=== PATIENT | male | born 1950 | race Caucasian/White ===

== ENCOUNTER 2024-06-21 17:23 | Inpatient (IN) ==
[2024-06-21 17:52] LABS: iSTAT Creatinine 1.1 mg/dl (0.6-1.3); iSTAT Ionized Calcium 1.1 mmol/l (1.12-1.32); iSTAT Potassium 3.8 mmol/L (3.3-5.0)
[2024-06-21] MEDS: OPTIRAY 320 125ml IV ONE (18:04)
[2024-06-21 18:07] LABS: Basophils # (auto) 0.02 K/uL (0.00-0.20); Basophils % (auto) 0.3 %; Eosinophils # (auto) 0.16 K/uL (0.00-0.50); Eosinophils % (auto) 2.2 %; Hematocrit (blood only) 47.2 % (42.0-52.0); Hemoglobin 15.9 g/dl (14.0-18.0); Immature Granulocytes # (auto) 0.02 K/uL (0.01-0.20); Immature Granulocytes % (auto) 0.3 %; Lymphocytes # (auto) 1.46 K/uL (1.20-3.40); Mean Corpuscular Hemoglobin 30.3 pg (25.0-34.0); Mean Corpuscular Hgb Conc 33.7 g/dL (32.0-36.0); Mean Corpuscular Volume 90.1 fL (80.0-100.0); Mean Platelet Volume 9.3 fL (9.4-12.4); Monocytes # (auto) 0.62 K/uL (0.11-0.59); Monocytes % (auto) 8.5 %; Neutrophils # (auto) 5.02 K/uL (1.40-6.50); Neutrophils % (auto) 68.7 %; Platelet Count 226 K/uL (130-400); RDW Coefficient of Variation 13.3 % (11.5-14.5); RDW Standard Deviation 43.8 fL (36.4-46.3); Red Blood Count 5.24 M/uL (4.70-6.10)
[2024-06-21 18:11] LABS: Albumin Globulin Ratio 2.1 (0.9-2); Albumin Level 4.6 gm/dl (3.4-5.0); BUN Creatinine Ratio 18.6 (10-20); Bilirubin,Total 0.5 mg/dl (0.2-1.0); Creatinine Clr Calc Pharmacy 73.2 ml/min; Globulin 2.2 gm/dl (2.5-4.0); Magnesium 2.3 mg/dl (1.7-2.4); Potassium 3.9 mmol/L (3.5-5.1); Total Protein 6.8 gm/dl (6.0-8.3)
[2024-06-21 18:18] LABS: Troponin I High Sensitivity 3.7 pg/ml (0-20)
[2024-06-21 18:23] LABS: Partial Thromboplastin Time 27 Seconds (21-31); Prothrombin Time 10.6 Seconds (9.0-12.0)
--- NOTE | 2024-06-21 18:29 | CT Scan Report ---
EXAMINATION: Head CT without CLINICAL HISTORY: Neurodeficit, acute stroke suspected PRIORS: None TECHNIQUE: Contiguous axial images were obtained through the head without the use of intravenous contrast. Sagittal and coronal reformations are supplied. FINDINGS: Age appropriate parenchymal volume is noted. Santamaria-white differentiation is preserved. No edema or midline shift. Moderate periventricular lucency noted suggesting small vessel occlusive disease. No intra-axial or extra-axial hemorrhage. Ventricles are normal in size and configuration. Brainstem and cerebellum have a normal appearance. Calvarium unremarkable. Paranasal sinuses and mastoid air cells are well-pneumatized. Globes are intact. No retrobulbar abnormality. IMPRESSION: No CT evidence of an acute intracranial abnormality. Electronically signed by Abbey Moss 06-21-2024 6:28 PM
--- NOTE | 2024-06-21 18:29 | CT Scan Report ---
EXAM: CT angio neck with con CLINICAL HISTORY: Neurodeficit, acute stroke suspected TECHNIQUE: Contiguous CTA axial images were obtained through the neck with the administration of intravenous contrast. Sagittal and coronal reformations are supplied. MIPS are supplied. COMPARISON: None FINDINGS: Dental amalgam creates beam hardening artifact which diminishes image quality. A left-sided aortic arch is present. Moderate atherosclerotic disease is noted with appropriate takeoff of the 3 great vessels and no high-grade stenosis. The common, internal and external carotid arteries are patent with mild atherosclerotic disease of the right carotid bulb. No hemodynamically significant stenosis, thrombus or intimal flap to suggest dissection. The internal carotid arteries entered the petrous portion of the skull base normally. The vertebral arteries opacify normallywith the left vertebral artery being dominant. No significant atherosclerotic plaque, hemodynamically significant stenosis or dissection. Both vertebral arteries contribute to the basilar artery at the level of the brainstem. No aneurysm at the basilar tip. IMPRESSION: No CTA evidence of an acutevascular abnormality in the neck. Electronically signed by Abbey Moss 06-21-2024 6:28 PM
--- NOTE | 2024-06-21 18:29 | CT Scan Report ---
EXAM: CTA head with CLINICAL HISTORY: Stroke suspected neurodeficit TECHNIQUE: Contiguous CTA axial images were obtained through the head after the administration of intravenous contrast. Sagittal and coronal reformations are supplied. PRIORS: None FINDINGS: The vertebral arteries form the basilar artery at the skull base. [place] is patent. No thrombus or hemodynamically significant stenosis. No aneurysmal dilatation or miranda aneurysm. Mild to moderate atherosclerotic disease of the left internal carotid artery cavernous portion with no hemodynamically significant stenosis. No enhancing mass in the brain. Mild to moderate osseous demineralization noted. IMPRESSION: No CTA evidence of an acute vascular abnormality. Electronically signed by Abbey Moss 06-21-2024 6:28 PM
[2024-06-21] MEDS: ASPIRIN 81 MG CHEW PO STA (19:29)
--- NOTE | 2024-06-21 19:46 | Emergency Department Note ---
History of Present Illness General Chief complaint: TIA Symptoms Time Seen by Provider: 06/21/24 17:25 History of Present Illness Provider complaint: Strokelike symptoms 74-year-old male presents emergency department for strokelike symptoms. EMS reports that the patient reported that he was having difficulty ambulating speaking and having facial droop started at 1430. EMS reports that by the time they got there his symptoms had resolved. Patient reports no headache. No fevers. He reports no numbness tingling difficulty speaking or walking. Home Medications Medication Instructions Recorded Confirmed Type ascorbic acid (vitamin C) 1,000 mg 1 g PO DAILY 06/21/24 06/21/24 History tablet (Vitamin C) cholecalciferol (vitamin D3) 25 25 mcg PO DAILY 06/21/24 06/21/24 History mcg (1,000 unit) tablet (Vitamin D3) cyanocobalamin (vitamin B-12) 1,000 mcg PO DAILY 06/21/24 06/21/24 History 1,000 mcg tablet (Vitamin B-12) potassium gluconate 595 mg (99 mg) 595 mg PO DAILY 06/21/24 06/21/24 History tablet Allergies Allergy/AdvReac Type Severity Reaction Status Date / Time No Known Allergies Allergy Unverified 06/21/24 19:18 Past Med/Surg History Problem List (Updated 06/21/24 @ 20:00 by Urbano Ramos MD) TIA (transient ischemic attack) (Acute) Social History Smoking Status: Former smoker Feels Safe at Home: Yes Physical Exam Vital Signs Vital Signs - 24 hr 06/21/24 17:31 06/21/24 17:31 06/21/24 17:36 Temperature 37 C Temperature Source Oral Oral Pulse Rate 93 H 88 Pulse Rate [Apical] Pulse Rate from SpO2 Sensor 87 Pulse Rhythm [Apical] Pulse Strength [Apical] Respiratory Rate 15 20 Respiratory Effort / Characteristics Non-Labored Spontaneous Respiratory Depth Normal Respiratory Pattern Blood Pressure 196/87 H Blood Pressure [Right Arm] Blood Pressure Mean 123 Blood Pressure Mean [Right Arm] Pulse Oximetry 99 99 Oxygen Delivery Method Room Air Room Air Sepsis Recent Fever Within 48 Hours No Sepsis New/Unexplained Change in Mental Status N/A Sepsis Action Taken by Nursing No Action Required 06/21/24 17:39 06/21/24 18:18 06/21/24 18:24 Temperature Temperature Source Pulse Rate 91 H 85 88 Pulse Rate [Apical] Pulse Rate from SpO2 Sensor 86 86 Pulse Rhythm [Apical] Pulse Strength [Apical] Respiratory Rate 20 16 Respiratory Effort / Characteristics Respiratory Depth Respiratory Pattern Blood Pressure Blood Pressure [Right Arm] Blood Pressure Mean Blood Pressure Mean [Right Arm] Pulse Oximetry 96 96 Oxygen Delivery Method Sepsis Recent Fever Within 48 Hours Sepsis New/Unexplained Change in Mental Status Sepsis Action Taken by Nursing 06/21/24 18:30 06/21/24 18:31 06/21/24 19:30 Temperature Temperature Source Pulse Rate 97 H Pulse Rate [Apical] 99 H Pulse Rate from SpO2 Sensor 95 H Pulse Rhythm [Apical] Regular Pulse Strength [Apical] Normal Respiratory Rate 18 19 Respiratory Effort / Characteristics Non-Labored Spontaneous Respiratory Depth Normal Respiratory Pattern Regular Blood Pressure 183/86 H Blood Pressure [Right Arm] 189/100 H Blood Pressure Mean 130 Blood Pressure Mean [Right Arm] 129 Pulse Oximetry 97 96 Oxygen Delivery Method Room Air Sepsis Recent Fever Within 48 Hours Sepsis New/Unexplained Change in Mental Status Sepsis Action Taken by Nursing Physical Exam HENT: Exam performed. - Head: Normocephalic and atraumatic. EYES: Conjunctivae and EOM are normal. Right eye exhibits no discharge. Left eye exhibits no discharge. No scleral icterus. NECK: Normal range of motion. Neck supple. No JVD present. CV: Normal rate, regular rhythm, normal heart sounds and intact distal pulses. There is no peripheral edema. Palpable radial pulses bue. PULM/CHEST: Effort normal and breath sounds normal. No respiratory distress. No stridor. no wheezes. no rales. ABD: The abdomen is soft. There is no tenderness. NEURO: Motor and sensation grossly intact. NIHSS: 0 SKIN: Skin is warm and dry. He is not diaphoretic. PSYCH: normal mood and affect. Behavior is normal. Judgment and thought content normal. Course Course 1725: The patient was evaluated in room C3. A complete history and physical exam was performed Cardiac monitoring: An order was placed for continuous cardiac monitoring. The monitor shows a rate of 90 with sinus rhythm interpreted by me No code stroke called as the patient's NIHSS is 0. 1900: Vital signs stable. Labs and imaging are unremarkable. Patient will be admitted to the [facility] team for TIA. 1957: Case management states that the patient be admitted to the [facility] hospitalist team. Patient will be admitted to the [facility] hospitalist team. Administered Medications Discontinued Medications Aspirin (Aspirin 81 Mg Chew) 324 mg PO NOW STA Stop: 06/21/24 19:05 Last Admin: 06/21/24 19:29 Dose: 324 mg Documented By: REG Ioversol (Optiray 320 125ml) 118 ml IV ONCE ONE Stop: 06/21/24 18:05 Last Admin: 06/21/24 18:04 Dose: 118 ml Documented By: SIOBHAN Medical Decision Making Laboratory Data Attestation: I reviewed the patient's lab results. 06/21/24 17:34 06/21/24 17:34 Lab Results 06/21/24 06/21/24 06/21/24 Range/Units 17:32 17:34 17:39 WBC 7.30 (4.8-10.8) K/ul RBC 5.24 (4.70-6.10) M/uL Hgb 15.9 (14.0-18.0) g/dl POC Hgb 16.0 (14.0-18.0) g/dl Hct 47.2 (42.0-52.0) % POC Hct 47 (42-52) % MCV 90.1 (80.0-100.0) fL MCH 30.3 (25.0-34.0) pg MCHC 33.7 (32.0-36.0) g/dL RDW Std Deviation 43.8 (36.4-46.3) fL RDW Coeff of Filippo 13.3 (11.5-14.5) % Plt Count 226 (130-400) K/uL MPV 9.3 L (9.4-12.4) fL Immature Gran % (Auto) 0.3 % Neut % (Auto) 68.7 % Lymph % (Auto) 20.0 % [place] % (Auto) 8.5 % Eos % (Auto) 2.2 % Baso % (Auto) 0.3 % Neut # (Auto) 5.02 (1.40-6.50) K/uL Lymph # (Auto) 1.46 (1.20-3.40) K/uL [place] # (Auto) 0.62 H (0.11-0.59) K/uL Eos # (Auto) 0.16 (0.00-0.50) K/uL Baso # (Auto) 0.02 (0.00-0.20) K/uL Immature Gran # (Auto) 0.02 (0.01-0.20) K/uL PT 10.6 (9.0-12.0) Seconds INR 1.0 (0.9-1.1) APTT 27 (21-31) Seconds PTT Ratio 1.0 POC Sodium 141 (135-144) mmol/L Sodium 141 (136-145) mmol/L POC Potassium 3.8 (3.3-5.0) mmol/L Potassium 3.9 (3.5-5.1) mmol/L POC Chloride 104 (101-112) mmol/L Chloride 105 (98-107) mmol/L Carbon Dioxide 30 (21-32) mmol/L POC Total CO2 27 (24-31) mmol/L Anion Gap 6 (3-11) POC Anion Gap 16.0 (16-25) mmol/L POC BUN 18 (7-18) mg/dl BUN 18 (6-23) mg/dl Creatinine 0.97 (0.6-1.4) mg/dl POC Creatinine 1.1 (0.6-1.3) mg/dl Est Cr Clr Drug Dosing 73.2 ml/min eGFR 80.91 BUN/Creatinine Ratio 18.6 (10-20) Glucose 108 H (70-99(Fasting)) mg/dl POC Glucose 104 H (70-99) mg/dl POC Glucose (other) 103 H (70-99) mg/dl Calcium 9.0 (8.6-10.3) mg/dl POC Ioniz Calcium [place] 1.10 L (1.12-1.32) mmol/l Magnesium 2.3 (1.7-2.4) mg/dl Total Bilirubin 0.5 (0.2-1.0) mg/dl AST 19 (13-39) U/L ALT 16 (7-52) U/L Alkaline Phosphatase 56 (34-104) U/L Troponin I High Sens 3.7 (0-20) pg/ml Total Protein 6.8 (6.0-8.3) gm/dl Albumin 4.6 (3.4-5.0) gm/dl Globulin 2.2 L (2.5-4.0) gm/dl Albumin/Globulin Ratio 2.1 H (0.9-2) Blood Type Antibody Screen 06/21/24 Range/Units 17:43 WBC (4.8-10.8) K/ul RBC (4.70-6.10) M/uL Hgb (14.0-18.0) g/dl POC Hgb (14.0-18.0) g/dl Hct (42.0-52.0) % POC Hct (42-52) % MCV (80.0-100.0) fL MCH (25.0-34.0) pg MCHC (32.0-36.0) g/dL RDW Std Deviation (36.4-46.3) fL RDW Coeff of Filippo (11.5-14.5) % Plt Count (130-400) K/uL MPV (9.4-12.4) fL Immature Gran % (Auto) % Neut % (Auto) % Lymph % (Auto) % [place] % (Auto) % Eos % (Auto) % Baso % (Auto) % Neut # (Auto) (1.40-6.50) K/uL Lymph # (Auto) (1.20-3.40) K/uL [place] # (Auto) (0.11-0.59) K/uL Eos # (Auto) (0.00-0.50) K/uL Baso # (Auto) (0.00-0.20) K/uL Immature Gran # (Auto) (0.01-0.20) K/uL PT (9.0-12.0) Seconds INR (0.9-1.1) APTT (21-31) Seconds PTT Ratio POC Sodium (135-144) mmol/L Sodium (136-145) mmol/L POC Potassium (3.3-5.0) mmol/L Potassium (3.5-5.1) mmol/L POC Chloride (101-112) mmol/L Chloride (98-107) mmol/L Carbon Dioxide (21-32) mmol/L POC Total CO2 (24-31) mmol/L Anion Gap (3-11) POC Anion Gap (16-25) mmol/L POC BUN (7-18) mg/dl BUN (6-23) mg/dl Creatinine (0.6-1.4) mg/dl POC Creatinine (0.6-1.3) mg/dl Est Cr Clr Drug Dosing ml/min eGFR BUN/Creatinine Ratio (10-20) Glucose (70-99(Fasting)) mg/dl POC Glucose (70-99) mg/dl POC Glucose (other) (70-99) mg/dl Calcium (8.6-10.3) mg/dl POC Ioniz Calcium [place] (1.12-1.32) mmol/l Magnesium (1.7-2.4) mg/dl Total Bilirubin (0.2-1.0) mg/dl AST (13-39) U/L ALT (7-52) U/L Alkaline Phosphatase (34-104) U/L Troponin I High Sens (0-20) pg/ml Total Protein (6.0-8.3) gm/dl Albumin (3.4-5.0) gm/dl Globulin (2.5-4.0) gm/dl Albumin/Globulin Ratio (0.9-2) Blood Type B Positive Antibody Screen NEGATIVE Imaging Data Radiologist's Impression: Head CT 06/21/24 17:29 EXAMINATION: Head CT without CLINICAL HISTORY: Neurodeficit, acute stroke suspected PRIORS: None TECHNIQUE: Contiguous axial images were obtained through the head without the use of intravenous contrast. Sagittal and coronal reformations are supplied. FINDINGS: Age appropriate parenchymal volume is noted. Santamaria-white differentiation is preserved. No edema or midline shift. Moderate periventricular lucency noted suggesting small vessel occlusive disease. No intra-axial or extra-axial hemorrhage. Ventricles are normal in size and configuration. Brainstem and cerebellum have a normal appearance. Calvarium unremarkable. Paranasal sinuses and mastoid air cells are well-pneumatized. Globes are intact. No retrobulbar abnormality. IMPRESSION: No CT evidence of an acute intracranial abnormality. Electronically signed by Abbey Moss 06-21-2024 6:28 PM Head CTA 06/21/24 17:29 EXAM: CTA head with CLINICAL HISTORY: Stroke suspected neurodeficit TECHNIQUE: Contiguous CTA axial images were obtained through the head after the administration of intravenous contrast. Sagittal and coronal reformations are supplied. PRIORS: None FINDINGS: The vertebral arteries form the basilar artery at the skull base. [place] is patent. No thrombus or hemodynamically significant stenosis. No aneurysmal dilatation or miranda aneurysm. Mild to moderate atherosclerotic disease of the left internal carotid artery cavernous portion with no hemodynamically significant stenosis. No enhancing mass in the brain. Mild to moderate osseous demineralization noted. IMPRESSION: No CTA evidence of an acute vascular abnormality. Electronically signed by Abbey Moss 06-21-2024 6:28 PM Neck CTA 06/21/24 17:29 EXAM: CT angio neck with con CLINICAL HISTORY: Neurodeficit, acute stroke suspected TECHNIQUE: Contiguous CTA axial images were obtained through the neck with the administration of intravenous contrast. Sagittal and coronal reformations are supplied. MIPS are supplied. COMPARISON: None FINDINGS: Dental amalgam creates beam hardening artifact which diminishes image quality. A left-sided aortic arch is present. Moderate atherosclerotic disease is noted with appropriate takeoff of the 3 great vessels and no high-grade stenosis. The common, internal and external carotid arteries are patent with mild atherosclerotic disease of the right carotid bulb. No hemodynamically significant stenosis, thrombus or intimal flap to suggest dissection. The internal carotid arteries entered the petrous portion of the skull base normally. The vertebral arteries opacify normallywith the left vertebral artery being dominant. No significant atherosclerotic plaque, hemodynamically significant stenosis or dissection. Both vertebral arteries contribute to the basilar artery at the level of the brainstem. No aneurysm at the basilar tip. IMPRESSION: No CTA evidence of an acutevascular abnormality in the neck. Electronically signed by Abbey Moss 06-21-2024 6:28 PM ECG Data Attestation: I personally reviewed and interpreted this ECG as follows: Rate (beats per minute): 87 Rhythm: + normal sinus ECG Intervals/blocks: + Normal [place] and + Normal QT-c ECG ST segments: + Normal ST segments Additional Comments: QRS 74 MDM Narrative 1725: The patient was evaluated in room C3. A complete history and physical exam was performed Cardiac monitoring: An order was placed for continuous cardiac monitoring. The monitor shows a rate of 90 with sinus rhythm interpreted by me No code stroke called as the patient's NIHSS is 0. 1900: Vital signs stable. Labs and imaging are unremarkable. Patient will be admitted to the [facility] team for TIA. 1957: Case management states that the patient be admitted to the [facility] hospitalist team. Patient will be admitted to the [facility] hospitalist team. Impression & Plan TIA (transient ischemic attack) Discharge Plan Visit Data Chief Complaint: TIA Symptoms ED Provider: Urbano Ramos Discharge Problem: TIA (transient ischemic attack) Patient Disposition: Being Evaluated by Hospitalist Forms Stand Alone Forms: My [facility] Prescriptions Prescriptions: No Action ascorbic acid (vitamin C) [Vitamin C] 1,000 mg Tablet 1 g PO DAILY cyanocobalamin (vitamin B-12) [Vitamin B-12] 1,000 mcg Tablet 1,000 mcg PO DAILY cholecalciferol (vitamin D3) [Vitamin D3] 25 mcg (1,000 unit) Tablet 25 mcg PO DAILY potassium gluconate 595 mg (99 mg) Tablet 595 mg PO DAILY Referrals Referrals: Jarret Beaulieu MD [Primary Care Provider] -
--- NOTE | 2024-06-21 20:29 | History & Physical Report ---
Date of Service June 21, 2024 Assessment & Plan (1) Stroke-like symptoms: Plan Strokelike symptoms- The patient will be admitted to telemetry for serial cardiac enzymes, serial EKG's, cardiac rhythm monitoring and a 2-D echocardiogram with Dopplers. Patient reported by his to have noted a slight facial droop, which at this point has completely resolved CT scan of head without contrast, CTA head and neck are all negative Order MRI of brain without contrast Stroke without thrombolytic order set Consult speech/PT/OT/neurology Check a fasting lipid panel and hemoglobin A1c Start aspirin 81 mg daily Start atorvastatin 20 mg daily History of Present Illness Chief Complaint: The patient presented to the emergency department via EMS, after his noted that he had a facial droop that started about 230 this afternoon. This was not accompanied by any symptoms that he was aware of, including no difficulty with speech, swallowing, weakness in arms or legs, lightheadedness, dizziness or headache. The patient continues to have no symptoms while in the emergency department Primary Care Provider: Jarret Beaulieu MD The patient is a 74-year-old male with a past medical history including vitamin D deficiency, vitamin B12 deficiency who presents to the emergency department as noted above. The patient himself, has had no overt symptoms, and has no symptoms at this time. Allergies Allergy/AdvReac Type Severity Reaction Status Date / Time No Known Allergies Allergy Unverified 06/21/24 19:18 Home Medications Medication Instructions Recorded Confirmed Type ascorbic acid (vitamin C) 1,000 mg 1 g PO DAILY 06/21/24 06/21/24 History tablet (Vitamin C) cholecalciferol (vitamin D3) 25 25 mcg PO DAILY 06/21/24 06/21/24 History mcg (1,000 unit) tablet (Vitamin D3) cyanocobalamin (vitamin B-12) 1,000 mcg PO DAILY 06/21/24 06/21/24 History 1,000 mcg tablet (Vitamin B-12) potassium gluconate 595 mg (99 mg) 595 mg PO DAILY 06/21/24 06/21/24 History tablet Past Med/Surg History Problem List (Updated 06/21/24 @ 21:52 by Harinder Oliveros MD) Stroke-like symptoms TIA (transient ischemic attack) (Acute) Medical History (Updated 06/21/24 @ 21:52 by Harinder Oliveros MD) Vitamin D deficiency B12 deficiency Social History Smoking Status: Former smoker Tobacco Type: Cigarettes Do You Dip or Chew Tobacco: No; Hx Alcohol Use: No Hx Substance Use: No Preferred Language: Israeli Communication Ability: Effective Delivery Room Clerk Required: No Beliefs That Will Affect Care: None Current Living Situation: Spouse Feels Safe at Home: Yes Assistive Devices: Glasses Review of Systems Review of Systems: The patient denies chest pain, palpitations, shortness of breath, dyspnea on exertion, cough, lower extremity swelling, sore throat, fevers, chills, sweats, weight change, fatigue, nausea, vomiting, diarrhea , constipation, abdominal pain, pelvic pain, blood in urine or stool, dysuria, urinary frequency or urgency, lightheadedness, dizziness, headache, memory loss, loss of consciousness, rash, abnormal bruising or bleeding, imbalance, focal or generalized weakness, numbness or tingling in arms or legs, generalized arthralgias or myalgias, back or neck pain, or night sweats. The review of systems is otherwise negative other than for that already noted above, and at least 10 systems have been reviewed. Physical Exam Physical Exam: The patient is awake, alert and oriented 3, well developed and well nourished, normocephalic and atraumatic, lying in bed and in no acute distress. HEENT--PERRL, EOMI, mucous membranes and oropharynx dry. Neck--supple. No JVD. No bruits. Thyroid normal, trachea midline, no adenopathy. Heart--normal S1 and S2. No murmurs, rubs or gallops. Lungs--clear bilaterally, no respiratory distress, no accessory muscle use. Abdomen--normal bowel sounds and soft. Nontender. Nondistended, no hernias or masses, no organomegaly. Extremities--no cyanosis or clubbing. No edema. There are good distal pulses b/l. Dermatologic--normal skin turgor, normal color, no abnormal lymph nodes, no rash. Neurologic--cranial nerves II through XII grossly intact. Trace facial droop on the right Rheumatologic--normal range of motion. Psychiatric--normal affect. Results & Data Results & Data Vital Signs (Past 12 Hours) Vital Signs Temp Pulse Pulse Resp BP BP Pulse Ox 06/21/24 20:05 105 H 14 184/100 H 97 12/15/24 19:30 99 H 19 189/100 H 96 06/21/24 18:31 183/86 H 06/21/24 18:30 97 H 18 97 06/21/24 18:24 88 16 96 06/21/24 18:18 85 20 96 06/21/24 17:39 91 H 06/21/24 17:36 88 20 99 06/21/24 17:31 06/21/24 17:31 37 C 93 H 15 196/87 H 99 O2 Del Method 06/21/24 20:05 Room Air 06/21/24 19:30 Room Air 06/21/24 18:31 06/21/24 18:30 06/21/24 18:24 06/21/24 18:18 06/21/24 17:39 06/21/24 17:36 06/21/24 17:31 Room Air 06/21/24 17:31 Room Air Laboratory Results Laboratory Results WBC 7.30 K/ul (4.8-10.8) 06/21/24 17:34 RBC 5.24 M/uL (4.70-6.10) 06/21/24 17:34 Hgb 15.9 g/dl (14.0-18.0) 06/21/24 17:34 POC Hgb 16.0 g/dl (14.0-18.0) 06/21/24 17:39 Hct 47.2 % (42.0-52.0) 06/21/24 17:34 POC Hct 47 % (42-52) 06/21/24 17:39 MCV 90.1 fL (80.0-100.0) 06/21/24 17:34 MCH 30.3 pg (25.0-34.0) 06/21/24 17:34 MCHC 33.7 g/dL (32.0-36.0) 06/21/24 17:34 RDW Std Deviation 43.8 fL (36.4-46.3) 06/21/24 17:34 RDW Coeff of Filippo 13.3 % (11.5-14.5) 06/21/24 17:34 Plt Count 226 K/uL (130-400) 06/21/24 17:34 MPV 9.3 fL (9.4-12.4) L 06/21/24 17:34 Immature Gran % (Auto) 0.3 % 06/21/24 17:34 Neut % (Auto) 68.7 % 06/21/24 17:34 Lymph % (Auto) 20.0 % 06/21/24 17:34 [place] % (Auto) 8.5 % 06/21/24 17:34 Eos % (Auto) 2.2 % 06/21/24 17:34 Baso % (Auto) 0.3 % 06/21/24 17:34 Neut # (Auto) 5.02 K/uL (1.40-6.50) 06/21/24 17:34 Lymph # (Auto) 1.46 K/uL (1.20-3.40) 06/21/24 17:34 [place] # (Auto) 0.62 K/uL (0.11-0.59) H 06/21/24 17:34 Eos # (Auto) 0.16 K/uL (0.00-0.50) 06/21/24 17:34 Baso # (Auto) 0.02 K/uL (0.00-0.20) 06/21/24 17:34 Immature Gran # (Auto) 0.02 K/uL (0.01-0.20) 06/21/24 17:34 PT 10.6 Seconds (9.0-12.0) 06/21/24 17:34 INR 1.0 (0.9-1.1) 06/21/24 17:34 APTT 27 Seconds (21-31) 06/21/24 17:34 PTT Ratio 1.0 06/21/24 17:34 POC Sodium 141 mmol/L (135-144) 06/21/24 17:39 Sodium 141 mmol/L (136-145) 06/21/24 17:34 POC Potassium 3.8 mmol/L (3.3-5.0) 06/21/24 17:39 Potassium 3.9 mmol/L (3.5-5.1) 06/21/24 17:34 POC Chloride 104 mmol/L (101-112) 06/21/24 17:39 Chloride 105 mmol/L (98-107) 06/21/24 17:34 Carbon Dioxide 30 mmol/L (21-32) 06/21/24 17:34 POC Total CO2 27 mmol/L (24-31) 06/21/24 17:39 Anion Gap 6 (3-11) 06/21/24 17:34 POC Anion Gap 16.0 mmol/L (16-25) 06/21/24 17:39 POC BUN 18 mg/dl (7-18) 06/21/24 17:39 BUN 18 mg/dl (6-23) 06/21/24 17:34 Creatinine 0.97 mg/dl (0.6-1.4) 06/21/24 17:34 POC Creatinine 1.1 mg/dl (0.6-1.3) 06/21/24 17:39 Est Cr Clr Drug Dosing 73.2 ml/min 06/21/24 17:34 eGFR 80.91 06/21/24 17:34 BUN/Creatinine Ratio 18.6 (10-20) 06/21/24 17:34 Glucose 108 mg/dl (70-99(Fasting)) H 06/21/24 17:34 POC Glucose 104 mg/dl (70-99) H 06/21/24 17:32 POC Glucose (other) 103 mg/dl (70-99) H 06/21/24 17:39 Calcium 9.0 mg/dl (8.6-10.3) 06/21/24 17:34 POC Ioniz Calcium [place] 1.10 mmol/l (1.12-1.32) L 06/21/24 17:39 Magnesium 2.3 mg/dl (1.7-2.4) 06/21/24 17:34 Total Bilirubin 0.5 mg/dl (0.2-1.0) 06/21/24 17:34 AST 19 U/L (13-39) 06/21/24 17:34 ALT 16 U/L (7-52) 06/21/24 17:34 Alkaline Phosphatase 56 U/L (34-104) 06/21/24 17:34 Troponin I High Sens 3.7 pg/ml (0-20) 06/21/24 17:34 Total Protein 6.8 gm/dl (6.0-8.3) 06/21/24 17:34 Albumin 4.6 gm/dl (3.4-5.0) 06/21/24 17:34 Globulin 2.2 gm/dl (2.5-4.0) L 06/21/24 17:34 Albumin/Globulin Ratio 2.1 (0.9-2) H 06/21/24 17:34 TSH 1.629 uIu/ml (0.300-4.500) 06/21/24 17:34 Blood Type B Positive 06/21/24 17:43 Antibody Screen NEGATIVE 06/21/24 17:[address] 06/21/24 17:29 EXAMINATION: Head CT without CLINICAL HISTORY: Neurodeficit, acute stroke suspected PRIORS: None TECHNIQUE: Contiguous axial images were obtained through the head without the use of intravenous contrast. Sagittal and coronal reformations are supplied. FINDINGS: Age appropriate parenchymal volume is noted. Santamaria-white differentiation is preserved. No edema or midline shift. Moderate periventricular lucency noted suggesting small vessel occlusive disease. No intra-axial or extra-axial hemorrhage. Ventricles are normal in size and configuration. Brainstem and cerebellum have a normal appearance. Calvarium unremarkable. Paranasal sinuses and mastoid air cells are well-pneumatized. Globes are intact. No retrobulbar abnormality. IMPRESSION: No CT evidence of an acute intracranial abnormality. Electronically signed by Abbey Moss 06-21-2024 6:28 PM Head CTA 06/21/24 17:29 EXAM: CTA head with CLINICAL HISTORY: Stroke suspected neurodeficit TECHNIQUE: Contiguous CTA axial images were obtained through the head after the administration of intravenous contrast. Sagittal and coronal reformations are supplied. PRIORS: None FINDINGS: The vertebral arteries form the basilar artery at the skull base. [place] is patent. No thrombus or hemodynamically significant stenosis. No aneurysmal dilatation or miranda aneurysm. Mild to moderate atherosclerotic disease of the left internal carotid artery cavernous portion with no hemodynamically significant stenosis. No enhancing mass in the brain. Mild to moderate osseous demineralization noted. IMPRESSION: No CTA evidence of an acute vascular abnormality. Electronically signed by Abbey Moss 06-21-2024 6:28 PM Neck CTA 06/21/24 17:29 EXAM: CT angio neck with con CLINICAL HISTORY: Neurodeficit, acute stroke suspected TECHNIQUE: Contiguous CTA axial images were obtained through the neck with the administration of intravenous contrast. Sagittal and coronal reformations are supplied. MIPS are supplied. COMPARISON: None FINDINGS: Dental amalgam creates beam hardening artifact which diminishes image quality. A left-sided aortic arch is present. Moderate atherosclerotic disease is noted with appropriate takeoff of the 3 great vessels and no high-grade stenosis. The common, internal and external carotid arteries are patent with mild atherosclerotic disease of the right carotid bulb. No hemodynamically significant stenosis, thrombus or intimal flap to suggest dissection. The internal carotid arteries entered the petrous portion of the skull base normally. The vertebral arteries opacify normallywith the left vertebral artery being dominant. No significant atherosclerotic plaque, hemodynamically significant stenosis or dissection. Both vertebral arteries contribute to the basilar artery at the level of the brainstem. No aneurysm at the basilar tip. IMPRESSION: No CTA evidence of an acutevascular abnormality in the neck. Electronically signed by Abbey Moss 06-21-2024 6:28 PM Code Status & VTE Plan Code Status Full code VTE Prophylaxis Plan VTE Prophylaxis will be ordered: Yes PG Care Time/CCT Total # of Minutes Spent Total Time Spent with Patient: Total time spent is greater than 50% in coordination of care (as documented) at patient's floor/unit and/or counseling patient: Coding Level of Care Code 20515 INT INP/OBS CARE 2/55MIN Diagnoses Stroke-like symptoms R29.90
[2024-06-21 21:06] LABS: Thyroid Stimulating Hormone 1.629 uIu/ml (0.300-4.500)
[2024-06-21] MEDS ORDERED: PHARMACIST DISCHARGE MED REC CONSULT PRN (21:27)
[2024-06-21] MEDS ORDERED: ACETAMINOPHEN 325 MG TAB PO PRN (21:27)
--- NOTE | 2024-06-22 00:35 | Magnetic Resonance Report ---
Exam(s): MRI HEAD Without Contrast EXAM: MR Head Without Intravenous Contrast CLINICAL HISTORY: Reason for exam: stroke like symptoms. TECHNIQUE: Magnetic resonance images of the head/brain without intravenous contrast in multiple planes. COMPARISON: No relevant prior studies available. FINDINGS: Brain: There are 3 tiny acute ischemic injuries within the right frontal lobe and insular cortex without evidence of hemorrhagic transformation. Remote ischemic injuries of the right cerebellum. Mild nonspecific white matter changes. There is transient loss of the normal terminal right vertebral artery flow void concerning for slow flow. The remainder of the flow voids at the base of the brain are intact. Ventricles: Mild ventriculomegaly. Bones/joints: Unremarkable. No acute fracture. Sinuses: Unremarkable as visualized. No acute sinusitis. Mastoid air cells: Unremarkable as visualized. No mastoid effusion. Orbits: Bilateral lens replacements. There is a fluid collection within the left eyelid. IMPRESSION: There are 3 tiny foci of acute ischemic injury within the right frontal lobe and insular cortex concerning for embolic phenomena. No evidence of hemorrhagic transformation. Recommend CT angiogram of the head and neck for further evaluation. Communications: Verify Receipt Electronically signed by: Gillian العلي MD 06/22/24 00:34 AM
--- NOTE | 2024-06-22 07:58 | XRay Report ---
EXAM: XR chest 1V portable CLINICAL HISTORY: NEURO DEFICIT SRM/LDS TECHNIQUE: An X-ray image of the chest is obtained in AP projection. COMPARISON: No prior studies are available for comparison. FINDINGS: Pulmonary Parenchyma: Minimal prominent bilateral bronchovascular markings. No evidence of consolidation, collapse, or focal opacities. No pulmonary nodules are identified. No evidence of pleural effusion or pleural thickening. No pneumothorax. Heart and Mediastinum: Heart size and shape are normal. No mediastinal widening or masses. No hilar or mediastinal lymphadenopathy. Bony Thorax: Bony thorax appears intact without fractures or deformities. Soft Tissues: Soft tissues overlying the chest wall are unremarkable. IMPRESSION: No acute cardiopulmonary abnormalities are identified. Electronically signed by Shreyas Funes 06-22-2024 07:57 AM
[2024-06-22 08:20] LABS: BUN Creatinine Ratio 16.5 (10-20); Calcium 8.9 mg/dl (8.6-10.3); Chol HDL Ratio 4.5 (0-5); Creatinine Clr Calc Pharmacy 84.8 ml/min; Potassium 3.9 mmol/L (3.5-5.1)
[2024-06-22] MEDS ORDERED: NON-FORMULARY MEDICATION (Potassium Gluconate 595 mg (99 mg) Tablet) PO SCH (09:00)
[2024-06-22] MEDS: CYANOCOBALAMIN (B-12) 500 MCG TABLET PO SCH (09:05)
[2024-06-22] MEDS: ASCORBIC ACID 500 MG TAB PO SCH (09:05)
[2024-06-22] MEDS: ATORVASTATIN 20 MG TAB PO SCH (09:06)
[2024-06-22] MEDS: ASPIRIN 81 MG ECTAB PO SCH (09:06)
[2024-06-22] MEDS: CHOLECALCIFEROL 25 MCG (1000 UNITS) TAB PO SCH (09:06)
--- NOTE | 2024-06-22 10:16 | Neurology Consultation ---
Date of Consultation June 22, 2024 Assessment & Plan (1) Stenosis of right internal carotid artery: (2) Stroke: Plan Symptomatic severe stenosis of the right internal carotid artery, presenting with multifocal carotid embolic infarcts to the right cerebral hemisphere. 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 Patient needs a consultation with vascular surgery as he is likely a candidate for revascularization of the right internal carotid artery stenosis. Would recommend dual antiplatelet therapy, aspirin 81 mg/day, Plavix 75 mg/day. Would also recommend high intensity statin therapy, increased patient's dosage of atorvastatin to 80 mg/day. Allow for permissive hypertension acutely. Long-term systolic blood pressure goal less than 130/80. Would also check a transthoracic echocardiogram with bubble study and consider obtaining ambulatory cardiac monitoring. Patient will need to follow-up with his PCP for ongoing management of cardiovascular risk factors. Should not require additional outpatient neurology follow up. History of Present Illness Reason for Consultation: stroke Requesting Physician: Arlin Attending Physician: Long Fong, History of Present Illness The patient is a 74-year-old right-handed male presenting to the emergency department with a chief complaint of of left facial weakness. He does not report any other associated symptoms and believes his symptoms have resolved. He recalls an episode of vertigo and associated gait instability that occurred a few months ago. He is a former smoker. Past medical history is otherwise unremarkable. He does not take any prescription medications. Allergies Allergy/AdvReac Type Severity Reaction Status Date / Time No Known Allergies Allergy Unverified 06/21/24 19:18 Home Medications Medication Instructions Recorded Confirmed Type ascorbic acid (vitamin C) 1,000 mg 1 g PO DAILY 06/21/24 06/21/24 History tablet (Vitamin C) cholecalciferol (vitamin D3) 25 25 mcg PO DAILY 06/21/24 06/21/24 History mcg (1,000 unit) tablet (Vitamin D3) cyanocobalamin (vitamin B-12) 1,000 mcg PO DAILY 06/21/24 06/21/24 History 1,000 mcg tablet (Vitamin B-12) potassium gluconate 595 mg (99 mg) 595 mg PO DAILY 06/21/24 06/21/24 History tablet Patient History Medical History Vitamin D deficiency B12 deficiency Social History Smoking Status: Former smoker Tobacco Type: Cigarettes Smoking End Date: 1983; Do You Dip or Chew Tobacco: No; Hx Alcohol Use: No Hx Substance Use: No Preferred Language: Montenegrin Communication Ability: Effective Pharmacist Critical Care Required: No Beliefs That Will Affect Care: None Current Living Situation: Spouse Feels Safe at Home: Yes Safety Concerns: Feels Safe At This Time Assistive Devices: Glasses Review of Systems Constitutional: no fever Eyes: no blind spots and no diplopia Ear, Nose, Mouth, Throat: no hearing loss Respiratory: no dyspnea Cardiovascular: no palpitations Gastrointestinal: no nausea and no vomiting Genitourinary: no urinary incontinence Musculoskeletal: no neck pain and no myalgia Integumentary: no rash and no lesions Neurologic: no tremor(s), no syncope, no headache(s), no abnormal speech and no memory loss Psychiatric: no depression and no anxiety Hematologic / Lymphatic: no easy bleeding and no easy bruising Exam (Neuro) Constitutional: well developed and + thin; no acute distress Eyes: normal visual marrufo by confrontation, PERRL and EOM intact bilaterally; no nystagmus Neurologic: Oriented to:: Person, Place and Time Memory: Short Term Intact and Remote Intact Attention: Span Intact and Concentration Intact Speech Fluency: negative Dysarthria or Dysfluency Speech Aphasia: negative Aphasia Fund of Knowledge: Current Events, Past History and Vocabulary Cranial Nerves: Normal II, III, IV, , V, VIII, IX, X, XI and XII; Abnorm VII (Mild left lower facial weakness) Motor Strength: Pronator Drift (Fix on the left with arm roll) Laterality: Left and Hemiparesis (Mild weakness of the left arm and leg) Motor Tone: Normal Lower Extremities and Normal Upper Extremities Muscle Bulk/Involuntary Movements: No Involuntary Movements; negative Muscle At rophy Sensation: Light Touch Intact, Pain/Temperature Intact and Proprioception Intact Coordination: Finger-Nose Abnormal Laterality: Left and Heel-Lr Abnormal Laterality: Left Deep Tendon Reflexes: Rt Triceps: 2+, Lt Triceps: 2+, Rt Biceps: 2+, Lt Biceps: 2+, Rt Brachioradialis: 2+, Lt Brachioradialis: 2+, Rt Patellar: 2+, Lt Patellar: 3+, Rt Ankle: 2+ and Lt Ankle: 2+ Special Tests: negative Babinski Present Results & Data Vital Signs (Past 12 Hours) Vital Signs Temp Pulse Pulse Resp BP Pulse Ox O2 Del Method 06/22/24 07:53 37.1 C 76 18 155/73 H 97 Room Air 06/22/24 05:40 73 06/22/24 03:43 36.3 C L 73 18 168/79 H 96 Room Air 06/21/24 22:25 84 Laboratory Results Triglycerides 157, cholesterol 215, LDL 135, VLDL 31, HDL 47 Diagnostic Findings I independently reviewed patient's brain MRI which reveals multiple acute embolic appearing infarcts within the right MCA territory as well as chronic infarcts within the right cerebellar hemisphere and a chronic lacunar infarct within the right centrum semiovale. I also independently reviewed this patient's CT angiography which did suggest stenosis of the right internal carotid artery. I subsequently contacted [facility] radiology, Dr. Long to review his CT angiography which does reveal a high-grade stenosis, greater than 90%, at the origin of the right internal carotid artery due to atherosclerotic lack. There is also evidence of high-grade stenosis right vertebral artery. Electrocardiogram revealed normal sinus rhythm Coding Level of Care Code 51771 INT INP/OBS CARE MIN Diagnoses Stenosis of right internal carotid artery I65.21 Stroke I63.9 Time Spent (min) 80 Comment Total time includes patient contact, chart review, counseling, note preparation
--- NOTE | 2024-06-22 10:25 | Medical Student Progress Note ---
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 - Speech therapy cleared regular diet w/aspiration precautions Stenosis of R ICA CTA Neck: > 90% R ICA and vertebral artery stenosis Total cholesterol: 213, LDL: 134, VLDL: 31, Triglycerides: 157 - Increase atorvostatin to 80 mg - Consulted vascular surgery, tentative vascular intervention on Admission and Anticipated Discharge Date Admission Date: June 21, 2024 Supervising Attestation I personally examined the patient and verified all rios points of history and exam, discussed case, and agree with decision making with Dr Nicholson and Jadyn Hall MS2 feeling ok no new complaints. understands plan. bridal consultant input appreciated vitals noted nad facial droop noted exam as above breathing unlabored no accessory muscles good effort embolic CVA - from carotid stenosis. med management/secondary risk reduction, vascular for TCAR or CEA; PT/OT eval and treat, speech input appreciated. add lovenox for DVT proph. otherwise as above Subjective Master is a 74 y.o. M w/PMHx of uncontrolled HTN, hyperlipidemia who presented to ED last night (17:25) for facial droop, difficulty ambulating and slurred speech. first noticed facial droop at 14:30, called for EMS. He did not notice any symptoms himself. No acute overnight events. Master is feeling well this morning. He was diagnosed w/HTN and hyperlipidemia by his PCP (ASCVD risk 17%) in 2018 and started on medications but claimed an allergic rxn (arm pruritus) and discontinued meds. Has been pursuing diet changes since then. No history of cardiac problems. Former smoker, quit in 1983. No current alcohol use, endorsed occasional consumption before quitting. Mild slurred speech during conversation. Denies changes in vision, gaze deviation, aphasia, paresthesias. Review of Systems Review of Systems: See HPI Physical Exam Constitutional: Well-appearing male, in no acute distress Eyes: L ptosis, PERRL, EOMI Cardiovascular: RRR, no murmurs, rubs gallops. No carotid bruits Neurologic: A&O x4. L eyebrow, mouth droop w/drooling. L-sided tongue deviation, midline palate rising. Symmetric sternocleidomastoid strength, shoulder shrug. L upper + lower extremities 4/5. Sensation intact b/l, DTR's +2 b/l. Unsteady gait, needed support to stand + ambulate. Results & Data Vital Signs (Past 12 Hours) Vital Signs Temp Pulse Pulse Resp BP BP BP 06/22/24 05:40 73 06/22/24 03:43 36.3 C L 73 18 168/79 H 06/21/24 22:25 84 06/21/24 21:29 37 C 80 18 184/94 H 06/21/24 21:27 83 06/21/24 21:06 91 H 14 180/98 H 06/21/24 20:05 105 H 14 184/100 H Pulse Ox O2 Del Method 06/22/24 05:40 06/22/24 03:43 96 Room Air 06/21/24 22:25 06/21/24 21:29 98 Room Air 06/21/24 21:27 06/21/24 21:06 97 Room Air 06/21/24 20:05 97 Room Air Laboratory Results Resident Activity Tracking Resident Involvement: Resident Care Provided Care Provided: Adult Hospital Medicine Resident Supervision Co-Signing Physician Notes Resident Attestation I was personally present during medical student and patient encounter and independently interviewed and examined the patient and verified the rios history and physical, reviewed labs and image studies, discussed the case with Lonny Hall (), and agree with the above mentioned findings and care plan.
[2024-06-22 11:00] LABS: Estimated Average Glucose 111 mg/dl; Hemoglobin A1C 5.5 % (4.5-5.6)
--- NOTE | 2024-06-22 11:36 | Consultation ---
Date of Consultation June 22, 2024 Assessment & Plan (1) Stenosis of right internal carotid artery: Pt with severe, symptomatic, R ICA stenosis. Pt discussed wtih Dr Lees, who reviewed images. D/t severity of stenosis and sx, recommend R ICA CEA vs TCAR. Both procedures discussed at length with pt and . Pt wishes to discuss with his son, a physician in [place]. Tentatively planning for SATURDAY PM. Will start on Brilinta, in addition to 81mg asa and statin medication. History of Present Illness Reason for Consultation: R ICA Stenosis Attending Physician: Long Fong DO History of Present Illness 74 yo m with hx of HTN admitted with TIA/CVA sx, seen in consultation today for severe R ICA stenosis. Pt was at home in normal state of health yesterday and noted L sided facial numbness, as well as LUE and LLE weakness, L facial droop and speech difficulty. Denies amaurosis, confusion, syncope, balance problems, BOJORQUEZ, fever, recent illness, chest pain, palpitations, SOB, abd pain, N/V, rest pain, claudication, other complaints. CTA neck demonstrates severe R ICA stenosis MRI brain demonstrates R hemispheric CVA. Allergies Allergy/AdvReac Type Severity Reaction Status Date / Time No Known Allergies Allergy Unverified 06/21/24 19:18 Home Medications Medication Instructions Recorded Confirmed Type ascorbic acid (vitamin C) 1,000 mg 1 g PO DAILY 06/21/24 06/21/24 History tablet (Vitamin C) cholecalciferol (vitamin D3) 25 25 mcg PO DAILY 06/21/24 06/21/24 History mcg (1,000 unit) tablet (Vitamin D3) cyanocobalamin (vitamin B-12) 1,000 mcg PO DAILY 06/21/24 06/21/24 History 1,000 mcg tablet (Vitamin B-12) potassium gluconate 595 mg (99 mg) 595 mg PO DAILY 06/21/24 06/21/24 History tablet Patient History Medical History Vitamin D deficiency B12 deficiency Social History Smoking Status: Former smoker Tobacco Type: Cigarettes Smoking End Date: 1983; Do You Dip or Chew Tobacco: No; Hx Alcohol Use: No Hx Substance Use: No Preferred Language: Polish Communication Ability: Effective Partnership Manager Required: No Beliefs That Will Affect Care: None Current Living Situation: Spouse Feels Safe at Home: Yes Safety Concerns: Feels Safe At This Time Assistive Devices: Glasses Review of Systems Review of Systems: All systems reviewed & are unremarkable except as noted in HPI & below Physical Exam Constitutional: WD/WN, vitals as above cooperative and comfortable; not in distress ENMT: Ears: no hearing impairment Neck: trachea midline Respiratory: normal respiratory effort, lungs clear to auscultation Auscultation: + diminished lung sounds Cardiovascular: Rate/Rhythm: regular rate and regular rhythm Vessels: posterior tibial pulses present, dorsalis pedis pulses present and radial pulses present; + abnormal peripheral pulses Extremities: normal capillary refill; no edema Gastrointestinal (Abdomen): Inspection/Auscultation: abdomen normal to inspection and normal bowel sounds Percussion/Palpation: abdomen soft; abdomen nontender Skin: no rashes, warm and dry Neurologic: moves all extremities, + focal motor deficit (mild L facial droop, LUE weakness) and awake; not confused Psychiatric: A+Ox3, euthymic affect Results & Data Vital Signs (Past 12 Hours) Vital Signs Temp Pulse Pulse Resp BP Pulse Ox O2 Del Method 06/22/24 07:53 37.1 C 76 18 155/73 H 97 Room Air 06/22/24 05:40 73 06/22/24 03:43 36.3 C L 73 18 168/79 H 96 Room Air
--- NOTE | 2024-06-22 11:54 | Pharmacy Report ---
- Date of Service June 22, 2024 - Pharmacy CVA/TIA Medication Review Medications to Prevent Stroke handout has been added to the patients discharge packet. Antiplatelet(s) * aspirin 81mg PO daily, clopidogrel 75mg PO daily Cholesterol * High intensity statin: atorvastatin 80 mg daily DVT Prophylaxis * SCD knee Therapeutic Anticoagulation * No history of Afib/Aflutter noted Type 2 Diabetes * Patient does not have T2DM
[2024-06-22] MEDS: CLOPIDOGREL BISULFATE 300 MG TAB PO STA (12:52)
--- NOTE | 2024-06-22 16:29 | Billing Data ---
Date of Service June 22, 2024 Coding Level of Care Code 88097 SUB INP/OBS CARE MIN
--- NOTE | 2024-06-22 17:35 | XCELERA ---
[id number]
[2024-06-22] MEDS: TICAGRELOR 90 MG TAB PO SCH (20:50)
[2024-06-22] MEDS: ATROPINE SULFATE 0.1 MG/ML 10ML SYR IV STA (23:30)
--- NOTE | 2024-06-22 23:44 | Communication Note ---
Date of Service: June 22, 2024 At 2324 patient's heart rate dropped to 36 and patient was found to be more flaccid on the left side. CODE BLUE was called on patient. Stroke alert was activated. Noted worsening left facial droop, left sided near flaccid and left across. Patient lethargic. Blood pressure of 99/54 with a heart rate of 57. Atropine ordered. Blood pressures improved to 109/64 and heart rate of 86. Patient was then able to follow simple commands. Last known well of 2214. Did discuss about possible intubation. However patient's VBG at bedside was 7.42. No need for intubation at this time. He was moved to ICU for further evaluation of stroke. Stroke alert activated. Telestroke was utilized. Head CT showed small acute nonhemorrhagic infarct of the posterior left frontal lobe and insula which are faintly visible without mass effect. This is most in line with what previous imaging has shown. Head CTA showed distal right middle cerebral artery tr ifurcation branch stenosis in the region of the right frontal lobe which is most likely related to the known acute infarct seen on MRI. Neck CTA showed approximately 80-85% hemodynamically significant stenosis of the proximal right internal carotid artery. Severe stenosis of the proximal right vertebral artery with near occlusion. Multifocal stenosis of the cervical vertebral artery throughout the cervical segment without occlusion. Discussed with neurologist on telestroke. At time of exam majority of symptoms have resolved. Patient still has left-sided weakness though is not flaccid at this point. Patient also continues to have left-sided facial droop which was what he initially presented with to the hospital. Telestroke neurology recommendations: -NSS at 125 cc/ hour. -No TNK needed. Does not need transferred at this time. -Continue aspirin, statin, and Brilinta. -Head of the bed flat.
[2024-06-22] MEDS: OPTIRAY 320 125ml IV ONE (23:51)
--- NOTE | 2024-06-23 00:02 | CT Scan Report ---
Exam(s): CT HEAD Without Contrast EXAM: CT Head Without Intravenous Contrast CLINICAL HISTORY: neuro deficit, acute stroke suspected. TECHNIQUE: Axial computed tomography images of the head/brain without intravenous contrast. CTDI is 36.55 mGy and DLP is 624.41 mGy-cm. Automated exposure control was utilized for the study. A dose lowering technique was utilized adhering to the principles of ALARA. COMPARISON: MRI brain 06/21/2024. FINDINGS: Brain: Age-appropriate generalized atrophy. Previously demonstrated small acute nonhemorrhagic infarcts of the posterior left frontal lobe insula are faintly visible without mass-effect. Mild supratentorial periventricular and subcortical white matter changes. No acute hemorrhage or abnormal extra-axial fluid collection. Ventricles: No hydrocephalus. No midline shift. Bones/joints: Unremarkable. No acute fracture. Soft tissues: Unremarkable. Sinuses: Unremarkable as visualized. No acute sinusitis. IMPRESSION: Redemonstrated small acute nonhemorrhagic infarcts of the posterior left frontal lobe insula are faintly visible without mass-effect. No acute hemorrhage. Communications: Call Doctor Stroke Electronically signed by: Declan Reed M.D. 06/23/24 00:01 AM
[2024-06-23 00:27] LABS: iSTAT Arterial Blood Gas HCO3 25 meg/L (19-24); iSTAT Arterial Blood Gas pCO2 38 mmHg (35-46); iSTAT Arterial Blood Gas pH 7.42 (7.35-7.45); iSTAT Arterial Blood Gas pO2 246 mmHg (80-95); iSTAT Carbon Dioxide 26 mmol/L (24-31); iSTAT Hematocrit 47 % (42-52); iSTAT Potassium 3.8 mmol/L (3.3-5.0); iSTAT Sodium 138 mmol/L (135-144)
--- NOTE | 2024-06-23 00:38 | CT Scan Report ---
Exam(s): CTA HEAD With Contrast IV Amt: 118 ML OPTIRAY 320 EXAM: CT Angiography Head With Intravenous Contrast CLINICAL HISTORY: neuro deficit, acute stroke suspected. TECHNIQUE: Axial computed tomographic angiography images of the head with intravenous contrast. CTDI is 34.65 mGy and DLP is 467.36 mGy-cm. Automated exposure control was utilized for the study. A dose lowering technique was utilized adhering to the principles of ALARA. 3D and MIP reconstructed images were created and reviewed. CONTRAST: Patient received 118 ML OPTIRAY 320 of IV contrast COMPARISON: CT Brain 06-22-2024. FINDINGS: Right internal carotid artery: No acute abnormality. Intracranial segment is patent with no significant stenosis. No aneurysm. Right anterior cerebral artery: Hypoplastic A1 segment with intact distal runoff. No aneurysm. Right middle cerebral artery: No proximal M1 or M2 stenosis or occlusion. Distal right frontal sylvian branch stenosis in the region of infarct (series 601 image 22). No aneurysm. Right posterior cerebral artery: Unremarkable. No occlusion or significant stenosis. No aneurysm. Right vertebral artery: Multiple high-grade near occluding calcified and noncalcified plaques throughout the right vertebral artery. Left internal carotid artery: No acute abnormality. Intracranial segment is patent with no significant stenosis. No aneurysm. Left anterior cerebral artery: Unremarkable. No occlusion or significant stenosis. No aneurysm. Left middle cerebral artery: Unremarkable. No occlusion or significant stenosis. No aneurysm. Left posterior cerebral artery: Unremarkable. No occlusion or significant stenosis. No aneurysm. Left vertebral artery: Unremarkable as visualized. Basilar artery: Mild stenosis of the mid basilar artery intact distal runoff. No occlusion or significant stenosis. No aneurysm. IMPRESSION: No proximal large vessel occlusion. Distal right middle cerebral artery trifurcation branch stenoses in the region of the right frontal lobe likely related to the known acute infarct seen on MRI. Communications: Call Doctor Acute arterial occlusion/ critical stenosis Electronically signed by: Declan Reed M.D. 06/23/24 00:37 AM
--- NOTE | 2024-06-23 00:48 | CT Scan Report ---
Exam(s): CTA NECK With Contrast IV Amt: 118 ML OPTIRAY 320 EXAM: CT Angiography Neck With Intravenous Contrast CLINICAL HISTORY: neuro deficit, acute stroke suspected. TECHNIQUE: Routine carotid CT angiography protocol was performed with intravenous contrast. NASCET criteria using the distal ICAs for comparison were used for evaluation of stenoses. CTDI is 34.25 mGy and DLP is 467 mGy-cm. Automated exposure control was utilized for the study. A dose lowering technique was utilized adhering to the principles of ALARA. 3D and MIP reconstructed images were created and reviewed. CONTRAST: Patient received 118 ML OPTIRAY 320 of IV contrast COMPARISON: None. FINDINGS: VASCULATURE: Right common carotid artery: Unremarkable. No occlusion or significant stenosis. No dissection. Right internal carotid artery: Partially calcified plaque at the carotid bulb with a severe approximately 80-85% diameter stenosis of the proximal right internal carotid artery. Mild stenosis of the remainder of the cervical right internal carotid artery with intact distal runoff. No dissection. Right external carotid artery: Unremarkable. No occlusion. Right vertebral artery: Severe stenosis of the proximal right vertebral artery with near occlusion. Multifocal stenoses of the right vertebral artery throughout the cervical segment without occlusion. No definite dissection. Left common carotid artery: Unremarkable. No occlusion or significant stenosis. No dissection. Left internal carotid artery: Mild calcified plaque at the carotid bulb without a hemodynamically significant stenosis. No dissection. Left external carotid artery: Unremarkable. No occlusion. Left vertebral artery: Unremarkable. No occlusion or significant stenosis. No dissection. NECK: Bones/joints: Degenerative changes of the spine. No acute fracture. Soft tissues: Unremarkable. Lung apices: Clear. CAROTID STENOSIS REFERENCE USING NASCET CRITERIA: % ICA stenosis = (1 - narrowest ICA diameter/diameter of distal cervical ICA) x 100. Mild - <50% stenosis. Moderate - 50-69% stenosis. Severe - 70-94% stenosis. Near occlusion - 95-99% stenosis. Occluded - 100% stenosis. IMPRESSION: Approximately 80-85% hemodynamically significant stenosis of the proximal right internal carotid artery. Severe stenosis of the proximal right vertebral artery with near occlusion. Multifocal stenoses of the cervical vertebral artery throughout the cervical segment without occlusion. Communications: Call Doctor Stroke Electronically signed by: Declan Reed M.D. 06/23/24 00:47 AM
[2024-06-23] MEDS ORDERED: SODIUM CHLORIDE 0.9% 10ML FLUSH IV ONE (01:53)
[2024-06-23] MEDS ORDERED: ATROPINE SULFATE 0.1 MG/ML 10ML SYR IV ONE (01:53)
[2024-06-23] MEDS: SODIUM CHLORIDE 0.9% 1,000 ML IV SCH (02:08)
[2024-06-23] MEDS: RAPID SEQUENCE INDUCTION BAG ONE (02:38)
--- NOTE | 2024-06-23 06:01 | Electrocardiogram Report ---
Test Reason : Blood Pressure : */* mmHG Vent. Rate : 87 BPM Atrial Rate : 87 BPM P-R Int : 148 ms QRS Dur : 74 ms QT Int : 364 ms P-R-T Axes : 74 68 43 degrees QTcB Int : 438 ms Normal sinus rhythm Nonspecific ST abnormality Abnormal ECG No previous ECGs available Confirmed by Sheng Amin ([id number]) on 06/23/2024 6:00:51 AM Referred By: Confirmed By: Sheng Amin
--- NOTE | 2024-06-23 06:01 | Electrocardiogram Report ---
Test Reason : Blood Pressure : */* mmHG Vent. Rate : 72 BPM Atrial Rate : 72 BPM P-R Int : 150 ms QRS Dur : 84 ms QT Int : 396 ms P-R-T Axes : 63 43 27 degrees QTcB Int : 433 ms Normal sinus rhythm Normal ECG When compared with ECG of 21-Jun-2024 17:29, No significant change was found Confirmed by Sheng Amin ([id number]) on 06/23/2024 6:01:02 AM Referred By: REFERRED SELF Confirmed By: Sheng Amin
[2024-06-23 06:28] LABS: BUN Creatinine Ratio 20.9 (10-20); Calcium 8.4 mg/dl (8.6-10.3); Creatinine Clr Calc Pharmacy 77.9 ml/min; Potassium 4.2 mmol/L (3.5-5.1)
--- NOTE | 2024-06-23 07:32 | Medical Student Progress Note ---
Date of Service June 23, 2024 Assessment & Plan (1) Ischemic cerebrovascular accident (CVA): (2) Stenosis of right internal carotid artery: (3) Bradycardia: Plan CVA Condition improving - L-sided facial droop weaning - L extremities strength improved from yesterday - Continue clopidogrel 75 mg qam, aspirin 81 mg qam. Educated on anticoagulant indications, side effects, risks vs benefits Stenosis of R ICA CTA Neck: > 90% R ICA and vertebral artery stenosis - Continue atorvostatin 80 mg qam - Vascular surgery concerned with overnight symptoms, surgery moved to tomorrow (06/24) Bradycardia Suspected vasovagal episode, followed with stroke unmasking - Urinary retention before onset - Warmth during symptom onset - Rhythm monitor before onset showed junctional bradycardia - Neurologic symptoms exacerbated w/o signs of concomitant stroke, now improved overall Cannot rule out cardiac etiology - Consult cardiology for further workup Admission and Anticipated Discharge Date Admission Date: June 21, 2024 Supervising Attestation I personally examined the patient and verified all rios points of history and exam, discussed case, and agree with decision making with Dr Nicholson and Jadyn Hall MS2 Feeling better now. Describes last night eventsnotes that he was laying in bed felt like he had a lot of bowel and bladder discomfort, and then asked nursing to help him get to the toiletwhenever he was trying to get up he felt extremely weak and limp, nursing was not able to assist him, as he laid back down in bed he felt very warm and flushed and extremely weak almost like he could not do anything. On secondhand accounts it seemed as though his stroke deficits became more pronounced and obvious again, although he does not recount this directly to me (although does a little bit in an indirect way noting that he is feeling better in that regard now than he was then), notes a lot of commotion, and then recalls that somewhere between whenever he was in bed feeling this way and whenever he was in the elevator to go down to the ICU for the stroke alert/teleneurology assessment he started to feel rather quickly but noticeably better and has felt that way since. In documentation, this was right around the time that his heart rate dropped into the mid 30s. Vitals noted, in general he is awake and alert oriented pleasant no distress. HEENT normocephalic atraumatic mucous membranes moist. Breathing unlabored. Cardio sinus nowbut on review of monitor from last night, he became bradycardic initially what appeared to be sinus, but then fairly quickly what appears to have been junctional. There is a lot of electrical interference obscuring some of his telemetry because of all of the commotion that was going onbut it does appear to have junctional rhythm for a good while in a fairly bradycardic rate, and now sinus again. Symptomatic bradycardiagiven his HPI, I would most suspect the junctional was due to profound vagal stimulus, and I do wonder if his recent stroke may have had an amplifying effect, but at the same time it is a bit concerning that he had such a significant event leading to what sounds to have at least been transient stroke recrudescence. While I suspect it was a self-limited and benign cause, obviously I am going to ask cardiology to look over his situation as well to make sure there is nothing that I may be missing. He does not appear to be on any luz blocking agents, and does not seem to have prior rhythm is sues. Strokeright-sided stroke (in discussion with vascular surgeryhis CT head from last night talking about left-sided findings was not accurate when they reviewed and reviewed with the radiologyit is the right where his prior strokes were) due to right-sided carotid stenosismed management, secondary risk reduction, vascular surgery intervention tomorrow. In discussion with vascular, given that his stroke recrudescence could also be crescendo symptoms from his tight carotid given the severity of the stenosis, he is on a heparin drip at this timerisk/benefit favors this given that his risk of bleeding is fairly low, and while I suspect that his recrudescence last night was due to poor blood flow from symptomatic bradycardia, this is obviously difficult to completely prove, and a crescendo stroke mechanism certainly could also be at play. Otherwise as above Subjective At 23:24 noted to be more flaccid on L side and stoke alert was called. Worsened L facial droop, L eye crossed, patient lethargic. Bp 99/54 and HR 38. Atropine ordered and administered, patient stabilized. Transferred to ICU for stroke tele cart, found to be neurologically stable, transferred back to PCU room. Master feels well this morning. Noted feeling "off" around time of ICU admission, could not describe it well, said it was a terrible feeling. He needed to urinate shortly beforehand but had difficulty ambulating and was unable to go. Mentioned he felt hot before nursing intitated transfer. Feels better today and does not feel any changes from strength/sensation compared to yesterday. No headaches, changes in vision, speech was at bedside today. They talked with son (MD) about vascular surgery and are agreeable to operation. Had questions regarding outpatient statin/anticoagulation therapy. Review of Systems Review of Systems: See HPI Physical Exam Constitutional: Well-appearing, in no acute distress Eyes: PERRL, EOMI. Peripheral marrufo intact ENMT: Oral mucosa pink, moist. Neurologic: Alert and oriented. Speech without slurring. Minor L eyebrow, mouth droop, no L ptosis. L upper + lower limb strength 4+/5. Results & Data Vital Signs (Past 12 Hours) Vital Signs Temp Pulse Pulse Resp BP Pulse Ox O2 Del Method 06/23/24 03:45 36.8 C 70 16 124/74 97 Room Air 06/23/24 00:00 37.1 C 87 20 142/74 H 99 Room Air 06/22/24 22:38 98 H 06/22/24 20:33 36.9 C 82 16 152/82 H 95 Room Air Resident Activity Tracking Resident Involvement: Resident Care Provided Care Provided: Adult Hospital Medicine Resident Supervision Co-Signing Physician Notes Resident Attestation I was personally present during medical student and patient encounter and independently interviewed and examined the patient and verified the rios history and physical, reviewed labs and image studies, discussed the case with Lonny FUENTES), and agree with the above mentioned findings and care plan.
[2024-06-23] MEDS ORDERED: ENOXAPARIN INJ 40 MG/0.4 ML SYR SQ SCH (09:00)
[2024-06-23] MEDS ORDERED: CLOPIDOGREL BISULFATE 75 MG TAB PO SCH (09:00)
[2024-06-23] MEDS ORDERED: ATORVASTATIN 40 MG TAB PO SCH (09:00)
[2024-06-23] MEDS: ATORVASTATIN 40 MG TAB PO SCH (09:33)
[2024-06-23] MEDS: HEPARIN SODIUM/DEXTROSE 25,000 UNITS/500 ML BAG IV SCH (09:57)
[2024-06-23] MEDS: Heparin IV Adult Wt-Based Standard *NO* INITIAL Bolus Protocol IV STA (10:03)
--- NOTE | 2024-06-23 11:57 | Neurology Progress Note ---
Date of Service June 23, 2024 Assessment & Plan (1) Stenosis of right internal carotid artery: (2) Ischemic cerebrovascular accident (CVA): Plan Symptomatic severe stenosis of the right internal carotid artery, presenting with multifocal carotid embolic infarcts to the right cerebral hemisphere. Patient also has chronic stenosis of the right vertebral artery and evidence of a small chronic right cerebellar infarct. Episode of transient escalation of left hemiparesis noted last night in the context of probable hypoperfusion due to transient bradycardia (36 bpm) and hypotension. The reason for this episode is unclear. On neurological examination this morning, patient is improved compared with my assessment of him yesterday. He does not have any residual facial droop or left hemiparesis. I also note that he has no signs of left hemineglect. Continue with dual antiplatelet therapy, currently Brilinta and aspirin, continue with high intensity statin, currently on atorvastatin 80 mg/day. Continue cardiac monitoring. Plan for TCAR this with vascular surgery. Allow for permissive hypertension. Admission and Anticipated Discharge Date Admission Date: June 23, 2024 Subjective Follow-up regarding stroke Patient was seen during rounding earlier this morning. Is resting comfortably in bed, spouse at bedside. Does not have any specific complaint. Patient had an episode of hypotension and bradycardia last night with associated worsening of his left hemiparesis. He had an urgent repeat CT of the head as well as CTA of the neck completed. There was no evidence of hemorrhagic transformation of his recent right hemispheric infarct, no mass effect or edema. There is evidence of decreased flow within the distal right MCA trifurcation, and a redemonstration of the known severe stenosis of the proximal right internal carotid artery as well as the right vertebral artery. As above, patient is without specific complaint this morning. He denies headache, vision loss, double vision, vertigo, dizziness, change in speech, focal weakness, or sensory loss. Patient was seen in consultation by vascular surgery yesterday regarding the severe stenosis of the right internal carotid artery, plan for TCAR procedure this . Plavix has been discontinued in favor of Brilinta. Aspirin has been continued. His atorvastatin dosage was increased to 80 mg/day. Results & Data Vital Signs (Past 12 Hours) Vital Signs Temp Pulse Pulse Resp BP BP Pulse Ox 06/23/24 11:02 36.4 C L 84 18 146/84 H 96 06/23/24 07:54 36.7 C 69 18 161/87 H 96 06/23/24 07:51 79 06/23/24 03:45 36.8 C 70 16 124/74 97 06/23/24 00:00 37.1 C 87 20 142/74 H 99 O2 Del Method 06/23/24 11:02 Room Air 06/23/24 07:54 Room Air 06/23/24 07:51 06/23/24 03:45 Room Air 06/23/24 00:00 Room Air Diagnostic Findings Echocardiogram completed yesterday revealed normal left ventricular size and systolic function, EF 60 to 65%, no regional wall motion abnormalities, moderate asymmetric hypertrophy involving the basal anteroseptum, no significant valvular abnormalities, no [id number] shunt following agitated saline, left atrial size normal. Exam (Neuro) Neurologic: Oriented to:: Person, Place and Time Memory: Short Term Intact and Remote Intact Attention: Span Intact and Concentration Intact Speech Fluency: negative Dysarthria or Dysfluency Speech Aphasia: negative Aphasia Fund of Knowledge: Current Events, Past History and Vocabulary Cranial Nerves: Normal II, III, IV, , V, VII, VIII, IX, X, XI and XII Motor Strength: Normal Lower Extremities and Normal Upper Extremities; negative Hemiparesis Motor Tone: Normal Lower Extremities and Normal Upper Extremities Muscle Bulk/Involuntary Movements: No Involuntary Movements Sensation: Light Touch Intact and Proprioception Intact Coordination: negative Dysdiadochokinesia or Finger-Nose Abnormal Coding Level of Care Code 06361 SUB INP/OBS CARE 2/35MIN Diagnoses Stenosis of right internal carotid artery I65.21 Ischemic cerebrovascular accident (CVA) I63.9 Time Spent (min) 40 Comment Total time includes patient contact, chart review, counseling, note preparation
--- NOTE | 2024-06-23 13:04 | Billing Data ---
Date of Service June 23, 2024 Coding Level of Care Code 56494 SUB INP/OBS CARE MIN
[2024-06-23] MEDS: POTASSIUM CHLORIDE CRTAB 20 MEQ TABCR PO STA (13:58)
[2024-06-23 15:43] LABS: ANTI-Xa, UFH(UnfractionatedHep 0.67 IU/ml (0.3-0.7)
--- NOTE | 2024-06-23 21:48 | Cardiology Consultation ---
Date of Consultation June 23, 2024 Assessment & Plan (1) Junctional bradycardia: (2) Hypertension: (3) Dyslipidemia: (4) Stroke: (5) Stenosis of right internal carotid artery: Plan ASSESSMENT/PLAN: 1. Junctional bradycardia: Symptomatic. Likely vagal. He was in sinus rhythm and heart rate trended downward into sinus bradycardia therefore junctional bradycardia in the upper 30s. Has not had a history of syncope. Continue telemetry to monitor for further events. No urgent indication for pacemaker at this time. 2. Hypertension: Blood pressure reasonable most recently but otherwise mostly hypertensive. As per hospitalist service and neurology. 3. Dyslipidemia: High intensity statin therapy is indicated. He recalls not tolerating a statin in the past but seems to be tolerating atorvastatin thus far. 4. Carotid artery stenosis: As per vascular. On antiplatelet therapy and statin therapy. 5. Stroke: As per neurology. 6. Disposition: Please call with any further questions or concerns. Patient care discussed with Dr. Fong of the primary hospitalist service. Thank you for allowing me to participate in the care of your patient. Please call for any other questions or concerns. Sincerely, Serge Amin M.D. History of Present Illness Reason for Consultation: "Symptomatic bradycardia" Requesting Physician: Long Fong DO Attending Physician: Long Fong DO History of Present Illness Mr. Burgess is a very pleasant 74-year-old gentleman with a history significant for stroke, carotid artery stenosis, hypertension, and dyslipidemia. He was hospitalized on 06/21/2024 with stroke and was found to have symptomatic severe stenosis of the right internal carotid artery, presenting with multifocal carotid embolic infarcts to the right cerebellar hemisphere. 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 His presenting symptoms included left facial weakness. He was seen by neurology and vascular surgery. Vascular recommended revascularization as well as Brilinta in addition to aspirin and statin therapy. On 06/22/2024, he felt the urge to urinate. He was unable to ambulate to the commode without nurse assistance. He remembers sitting down on the bed and waiting but had significant urge to urinate. He then recalls feeling quite embarrassed when he became incontinent to his urine due to the strong urge. He also remembers being incontinent of stool. He laid down and recalls nursing staff presenting to the bedside and taking him to the ICU for further evaluation. He also remembers receiving chest compressions only briefly. Nursing staff reported to me late this afternoon that he had approximately 3 chest compressions per report. He states that he remembers everything and did not lose consciousness. He recalls being told that his blood pressure was low. On telemetry, he was noted to develop sinus bradycardia and then junctional rhythm. The junctional bradycardia began at approximately 11:18 PM with heart rates in the high 30s. According to notes, his stroke symptoms became more prominent during this event. He had worsening left facial droop and was lethargic according to Dr. Childress's nicholas simmons. His blood pressure was 99/54. Atropine was administered and blood pressure improved, as did the heart rate. He denies a history of syncope or near syncope. He denies chest pain, shortness of breath, palpitations, edema, or bleeding. He believes that his stroke symptoms are back to baseline. Review of systems: As above. Family history: No known premature CAD. Social history: He quit smoking in 1983. Denies alcohol or drug abuse. He is and lives with his . They have 1 son in [facility]. 2 g [email or web address]. 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 He is from [place]. He was unaccompanied. Allergies Allergy/AdvReac Type Severity Reaction Status Date / Time No Known Allergies Allergy Unverified 06/21/24 19:18 Home Medications Medication Instructions Recorded Confirmed Type ascorbic acid (vitamin C) 1,000 mg 1 g PO DAILY 06/21/24 06/21/24 History tablet (Vitamin C) cholecalciferol (vitamin D3) 25 25 mcg PO DAILY 06/21/24 06/21/24 History mcg (1,000 unit) tablet (Vitamin D3) cyanocobalamin (vitamin B-12) 1,000 mcg PO DAILY 06/21/24 06/21/24 History 1,000 mcg tablet (Vitamin B-12) potassium gluconate 595 mg (99 mg) 595 mg PO DAILY 06/21/24 06/21/24 History tablet Problem List (Updated 06/23/24 @ 21:53 by Sheng Amni MD) Junctional bradycardia Dyslipidemia Hypertension Bradycardia (Acute) Ischemic cerebrovascular accident (CVA) Stroke Stenosis of right internal carotid artery Stroke-like symptoms TIA (transient ischemic attack) (Acute) Patient History Medical History Vitamin D deficiency B12 deficiency Social History Smoking Status: Former smoker Tobacco Type: Cigarettes Smoking End Date: 1983; Do You Dip or Chew Tobacco: No; Hx Alcohol Use: No Hx Substance Use: No Preferred Language: Greenlandic Communication Ability: Effective Assistant Loan Processor Required: No Beliefs That Will Affect Care: None Current Living Situation: Spouse Feels Safe at Home: Yes Safety Concerns: Feels Safe At This Time Assistive Devices: None Physical Exam Physical Exam: Gen.: No acute distress. Alert and oriented. HEENT: Anicteric sclera. Neck: No JVD. No bruits. Normal carotid upstrokes bilaterally. Cardiac: Regular. Normal S1-S2. No murmurs, rubs, or gallops. Pulmonary: Clear to auscultation bilaterally without wheezes, rales, or rhonchi. Abdomen: Soft, nontender, nondistended, with normoactive bowel sounds. No bruits noted. Extremities: 2+ radial pulses bilaterally. 2+ posterior tibialis pulses bilaterally. No edema or cyanosis. Psychiatric: Affect appears appropriate. Results & Data Vital Signs (Past 12 Hours) Vital Signs Temp Pulse Pulse Resp BP BP Pulse Ox 06/23/24 20:28 36.5 C 73 18 129/65 97 06/23/24 15:23 36.8 C 70 18 161/71 H 96 06/23/24 14:25 80 06/23/24 11:02 36.4 C L 84 18 146/84 H 96 O2 Del Method 06/23/24 20:28 Room Air 06/23/24 15:23 Room Air 06/23/24 14:25 06/23/24 11:02 Room Air Laboratory Results Laboratory Results - last 24 hr 06/23/24 06/23/24 06/23/24 00:22 00:31 05:34 POC Hgb 16.0 POC Hct 47 Heparin Anti-Xa, Unfract POC pH 7.42 POC pCO2 38 POC pO2 246 H POC HCO3 25 H POC Total CO2 26 POC Base Excess 0.0 POC ABG O2 Sat 100.0 H POC Sodium 138 Sodium 138 POC Potassium 3.8 Potassium 4.2 Chloride 106 Carbon Dioxide 24 Anion Gap 8 BUN 18 Creatinine 0.86 Est Cr Clr Drug Dosing 77.9 eGFR 89.74 BUN/Creatinine Ratio 20.9 H Glucose 107 H POC Glucose 114 H Calcium 8.4 L 06/23/24 15:08 POC Hgb POC Hct Heparin Anti-Xa, Unfract 0.67 POC pH POC pCO2 POC pO2 POC HCO3 POC Total CO2 POC Base Excess POC ABG O2 Sat POC Sodium Sodium POC Potassium Potassium Chloride Carbon Dioxide Anion Gap BUN Creatinine Est Cr Clr Drug Dosing eGFR BUN/Creatinine Ratio Glucose POC Glucose Calcium Diagnostic Findings Telemetry personally reviewed: Sinus rhythm. On 06/22/2024, he developed sinus bradycardia that gradually evolved into a junctional bradycardia in the upper 30s at 11:18 PM. The junctional bradycardia occurred for approximately 7 minutes. Echo 06/22/2024: Normal LV size, wall motion, systolic function. EF 60-65%. Moderate asymmetric hypertrophy involving the basal anteroseptum, but otherwise mild concentric LVH. No significant valvular abnormalities. No visualized interatrial shunt. Neurology and vascular notes reviewed. History and physical report reviewed. Labs reviewed and notable for stable renal function, normal potassium, normal high-sensitivity troponin, normal A1c, normal magnesium, normal transaminase levels, normal TSH, elevated LDL, normal blood counts. ECGs personally reviewed: ECG 06/21/2024 at 1729: Sinus rhythm. Nonspecific ST abnormality. 87 bpm. ECG 06/22/2024 at 4:56 AM: Sinus rhythm 72 bpm. ECG 06/23/2024 at 5 AM: Sinus rhythm 68 bpm. CTA neck 06/22/2024: 80 to 85% stenosis of the proximal right ICA. Severe stenosis of the proximal right vertebral artery with near occlusion. Multiple stenosis of the cervical vertebral artery. Medications Administered Current Inpatient Medications Acetaminophen (Acetaminophen 325 Mg Tab) 650 mg PO Q4H PRN PRN Reason: Pain or Fever Stop: 07/21/24 21:26 Ascorbic Acid (Ascorbic Acid 500 Mg Tab) 1,000 mg PO DAILY [facility] Stop: 07/22/24 08:59 Last Admin: 06/23/24 09:33 Dose: 1,000 mg Aspirin (Aspirin 81 Mg Ectab) 81 mg PO QAM [facility] Stop: 07/22/24 08:59 Last Admin: 06/23/24 09:34 Dose: 81 mg Atorvastatin Calcium (Atorvastatin 40 Mg Tab) 80 mg PO QAM ALBARO Stop: 07/23/24 08:59 Last Admin: 06/23/24 09:33 Dose: 80 mg Cyanocobalamin (Cyanocobalamin (B-12) 500 Mcg Tablet) 1,000 mcg PO DAILY ALBARO Stop: 07/22/24 08:59 Last Admin: 06/23/24 09:33 Dose: 1,000 mcg Sodium Chloride (Nss) 1,000 mls @ 125 mls/hr IV .Q8H ALBARO Stop: 06/24/24 00:44 Last Admin: 06/23/24 17:13 Dose: 125 mls/hr Heparin Sodium/Dextrose (Heparin Sodium/Dextrose) 25,000 units in 500 mls @ 27 mls/hr IV .[id number] ALBARO; Protocol Stop: 07/23/24 09:44 Last Titration: 06/23/24 18:56 Dose: 1,350 units/hr, 27 mls/hr Cefazolin Sodium (Ancef 2000mg) 2,000 mg in 15 mls @ 3.75 mls/min IV PREOP ONE; Protocol Stop: 06/24/24 12:33 Ticagrelor (Ticagrelor 90 Mg Tab) 90 mg PO BID ALBARO Stop: 07/22/24 20:59 Last Admin: 06/23/24 09:42 Dose: 90 mg Ticagrelor (Ticagrelor 90 Mg Tab) 180 mg PO ONE ONE Stop: 06/24/24 08:01 Vitamin D (Cholecalciferol 25 Mcg (1000 Units) Tab) 25 mcg PO DAILY [facility] Stop: 07/22/24 08:59 Last Admin: 06/23/24 09:33 Dose: 25 mcg PG Care Time/CCT Total # of Minutes Spent Total Time Spent with Patient: Total time spent is greater than 50% in coordination of care (as documented) at patient's floor/unit and/or counseling patient: Coding Level of Care Code 09816 INT INP/OBS CARE 3/75MIN Diagnoses Junctional bradycardia R00.1 Hypertension I10 Dyslipidemia E78.5 Stroke I63.9 Stenosis of right internal carotid artery I65.21
[2024-06-24 06:39] LABS: BUN Creatinine Ratio 14.8 (10-20); Calcium 7.8 mg/dl (8.6-10.3); Creatinine Clr Calc Pharmacy 87.7 ml/min; Potassium 3.9 mmol/L (3.5-5.1)
[2024-06-24 06:48] LABS: ANTI-Xa, UFH(UnfractionatedHep 1.12 IU/ml (0.3-0.7)
--- NOTE | 2024-06-24 07:55 | Hospitalist Progress Note ---
Date of Service June 24, 2024 Assessment & Plan (1) Ischemic cerebrovascular accident (CVA): (2) Stenosis of right internal carotid artery: Plan (R) CVA Condition improving - L-sided facial droop weaning - L extremities strength improved from yesterday - Continue DAPT w/ ASA and Brillinta, as well as high intensity Atorvastatin 80 mg - PT recc acute rehab; CM following and patient considering whether he will go to rehab or would prefer home health Stenosis of R ICA CTA Neck: > 90% R ICA and vertebral artery stenosis - Put on heparin drip due to recurrence of stroke like sxs at time of bradycardia due to possibility sxs were related to emboli from R ICA stenosis; held this am due to elevated anti-Xa - Consulted vascular surgery -- re-vascularization procedure today Symptomatic bradycardia - Likely result of vasovagal w/ resulting hypotension in the setting of severe R ICA stenosis leading to recurrence of stroke-like sxs - No recurrence and overnight telemetry NSR at 70-80s - Continue to monitor telemetry Admission and Anticipated Discharge Date Admission Date: June 23, 2024 Supervising Physician Co-Signing Physician Notes I personally examined the patient and verified all rios points of history and exam, discussed case, and agree with decision making with Dr Nicholson feeling pretty well postop. Extensive discussion with patient and on rationale for rehab depending on how he does with PT/OT tomorrow. Vitals noted, in general he is awake and alert pleasant no distress. HEENT normocephalic atraumatic mucous membranes moist. Breathing unlabored no accessory muscle use good effort. Skin without rashes pallor or icterus. Symptomatic bradycardiagiven his HPI, I would most suspect the junctional was due to profound vagal stimulus, and I do wonder if his recent stroke may have had an amplifying effect, but at the same time it is a bit concerning that he had such a significant event leading to what sounds to have at least been transient stroke recrudescence. Cardiology input appreciated. No further events since. Continue to monitor Strokeright-sided stroke due to right sided carotid stenosismed management/secondary risk reduction and now status post TCAR, doing well. PT/OT eval and treat. Probably rehab, if he does exceptionally well, possibly home with outpatient therapy Otherwise as above Subjective Feeling well. No pain and denies recurrence of symptoms from previous night where he was bradycardic. Telemetry also showing NSR in 70s-80s overnight. Review of Systems Review of Systems: See HPI Physical Exam Constitutional: Well-appearing, in no acute distress Eyes: PERRL, EOMI. Peripheral marrufo intact ENMT: Oral mucosa pink, moist. Neurologic: Alert and oriented. Speech without slurring. Minor L eyebrow, mouth droop, no L ptosis. Left upper and lower extremity strength of 4/5 Results & Data Results & Data Vital Signs (Past 12 Hours) Vital Signs Temp Pulse Pulse Resp BP BP Pulse Ox 06/24/24 07:40 36.8 C 75 18 141/73 H 96 06/24/24 07:10 84 06/24/24 02:51 36.9 C 66 17 147/90 H 95 06/23/24 23:29 36.9 C 86 18 143/79 H 98 06/23/24 22:52 69 06/23/24 20:28 36.5 C 73 18 129/65 97 O2 Del Method 06/24/24 07:40 Room Air 06/24/24 07:10 06/24/24 02:51 Room Air 06/23/24 23:29 Room Air 06/23/24 22:52 06/23/24 20:28 Room Air Resident Activity Tracking Resident Involvement: Resident Care Provided Care Provided: Adult Hospital Medicine
[2024-06-24] MEDS: TICAGRELOR 90 MG TAB PO ONE (08:07)
[2024-06-24] MEDS ORDERED: fentaNYL citrate PF 100 MCG/2 ML VIAL ONE ×2 (10:24→13:45)
[2024-06-24] MEDS ORDERED: ROCURONIUM BROMIDE 10 MG/ML 5 ML VIAL IV ONE ×2 (10:24→13:49)
[2024-06-24] MEDS ORDERED: DEXAMETHASONE SOD INJ 4 MG/ML VIAL ONE (10:24)
[2024-06-24] MEDS ORDERED: ONDANSETRON INJ 2 MG/ML 2 ML VIAL ONE (10:24)
[2024-06-24] MEDS ORDERED: PROPOFOL IV EMULSION 10 MG/ML 20 ML VIAL IV ONE (10:24)
[2024-06-24] MEDS ORDERED: LIDOCAINE 2% 2 ML VIAL/AMP(20MG/ML) INFIL ONE (10:24)
[2024-06-24] MEDS ORDERED: GLYCOPYRROLATE 0.2 MG/ML VIAL ONE ×2 (10:24→13:57)
--- NOTE | 2024-06-24 11:12 | History & Physical Bridge Note ---
Date of Service June 24, 2024 History & Physical Bridge Note Patient for a right tcar today. I have discussed the risks options and benefits of the procedure with the patient. The patient understands the risks options and benefits and agrees to the procedure. I have examined the patient, reviewed the History & Physical and in the interval since the performance of the History & Physical I have noted the following changes of clinical significance: no changes noted
--- NOTE | 2024-06-24 12:33 | Anesthesiology Consultation ---
Date of Service June 24, 2024 Assessment & Plan (1) Encounter for pre-operative examination: Chart Review Chart Review: Acceptable Risk for Surgery and Patient NOT seen in Pre Admission Testing Consults Requested none History Surgery Operation Date: 06/24/24 13:00 Proposed Procedures p Right Transcarotid Artery Revascularization - Ye Lees MD Height/Weight Height: 6 ft 1 in Weight: 80.1 kg Allergies Allergy/AdvReac Type Severity Reaction Status Date / Time No Known Allergies Allergy Unverified 06/21/24 19:18 Medications Home Medications Medication Instructions Recorded Confirmed Last Taken ascorbic acid (vitamin C) 1,000 mg 1 g PO DAILY 06/21/24 06/21/24 06/21/24 tablet (Vitamin C) cholecalciferol (vitamin D3) 25 25 mcg PO DAILY 06/21/24 06/21/24 06/21/24 mcg (1,000 unit) tablet (Vitamin D3) cyanocobalamin (vitamin B-12) 1,000 mcg PO DAILY 06/21/24 06/21/24 06/21/24 1,000 mcg tablet (Vitamin B-12) potassium gluconate 595 mg (99 mg) 595 mg PO DAILY 06/21/24 06/21/24 06/21/24 tablet Active Medications Generic Name Dose Route Start Last Admin Trade Name Freq PRN Reason Stop Dose Admin Ascorbic Acid 1,000 mg 06/22/24 09:00 06/24/24 08:07 Ascorbic Acid 500 Mg Tab PO 07/22/24 08:59 1,000 mg DAILY ALBARO Administration Aspirin 81 mg 06/22/24 09:00 06/24/24 08:07 Aspirin 81 Mg Ectab PO 07/22/24 08:59 81 mg QAM ALBARO Administration Atorvastatin Calcium 80 mg 06/23/24 09:00 06/24/24 08:07 Atorvastatin 40 Mg Tab PO 07/23/24 08:59 80 mg QAM ALBARO Administration Cyanocobalamin 1,000 mcg 06/22/24 09:00 06/24/24 08:07 Cyanocobalamin (B-12) 500 Mcg Tablet PO 07/22/24 08:59 1,000 mcg DAILY ALBARO Administration Heparin Sodium/Dextrose 25,000 units in 500 mls @ 0 mls/hr 06/23/24 09:45 06/24/24 06:53 Heparin Sodium/Dextrose IV 07/23/24 09:44 0 units/hr .Q0M ALBARO 0 mls/hr Titration Protocol 0 UNITS/HR Ticagrelor 90 mg 06/22/24 21:00 06/24/24 01:15 Ticagrelor 90 Mg Tab PO 07/22/24 20:59 90 mg BID ALBARO Administration Vitamin D 25 mcg 06/22/24 09:00 06/24/24 08:07 Cholecalciferol 25 Mcg (1000 Units) Tab PO 07/22/24 08:59 25 mcg DAILY ALBARO Administration NPO Date Last Intake of Fluids: 06/23/24 Time Last Intake of Fluids: 17:00 Date Last Intake of Solids: 06/22/24 Time Last Intake of Solids: 17:00 Past Medical History Medical History Vitamin D deficiency B12 deficiency Social History Smoking Status: Former smoker Do You Dip or Chew Tobacco: No Smoking End Date: 1983 Hx Alcohol Use: No Hx Substance Use: No substance use type: does not use Physical Exam Vital Signs Last Vital Signs Temp 98.1 F 06/24/24 12:21 Pulse 70 06/24/24 12:21 Resp 18 06/24/24 12:21 BP 155/91 H 06/24/24 12:21 Pulse Ox 98 06/24/24 12:21 O2 Del Method Room Air 06/24/24 12:21 Testing Laboratory Results 06/21/24 17:34 06/24/24 05:50 PT 10.6 Seconds (9.0-12.0) 06/21/24 17:34 INR 1.0 (0.9-1.1) 06/21/24 17:34 APTT 27 Seconds (21-31) 06/21/24 17:34 Hemoglobin A1c 5.5 % (4.5-5.6) 06/22/24 07:32 Blood Type B Positive 06/21/24 17:43 Antibody Screen NEGATIVE 06/21/24 17:43
[2024-06-24] MEDS ORDERED: fentaNYL citrate PF 100 MCG/2 ML VIAL IV PRN (12:34)
[2024-06-24] MEDS ORDERED: ePHEDrine sulfate 50 MG/ML AMP IV PRN (12:34)
[2024-06-24] MEDS ORDERED: ATROPINE SULFATE 0.1 MG/ML 10ML SYR IV PRN (12:34)
[2024-06-24] MEDS ORDERED: ONDANSETRON INJ 2 MG/ML 2 ML VIAL IV PRN (12:34)
[2024-06-24] MEDS ORDERED: Nursing to Pharmacy Communication SCH (12:45)
[2024-06-24] MEDS: ceFAZolin 2000MG 2,000 MG/15 ML SYR IV ONE (13:12)
[2024-06-24] MEDS ORDERED: HEPARIN SOD (PORCINE) 1000 UNIT/ML ONE (13:39)
[2024-06-24] MEDS ORDERED: PHENYLEPHRINE HCL 10 MG/ML VIAL ONE (14:10)
[2024-06-24] MEDS ORDERED: PROTAMINE SULFATE 10 MG/ML 5 ML VIAL IV ONE (14:13)
[2024-06-24] MEDS ORDERED: SUGAMMADEX SODIUM 200 MG/2 ML VIAL IV ONE (14:13)
--- NOTE | 2024-06-24 14:29 | Post Operative Brief Note ---
Immediate Post Op Note Date of Surgery June 24, 2024 Pre & Post Diagnosis Operation Date: 06/24/24 13:00 Pre-Op Diagnosis: Stenosis of right internal carotid artery Post-Op Diagnosis: Stenosis of right internal carotid artery I identified the patient and participated in the time-out.: Yes Procedure Operation Date: 06/24/24 13:00 Actual Procedures p Right Transcarotid Artery Revascularization, Ultrasound of the left common femoral vein(Right) - Ye Lees MD Surgeon Ye Lees MD Digital Marketing Assistant DO Iram Estimated Blood Loss 20 Findings Consistent with Post-Op Diagnosis Anesthesia Type General Complications none Disposition Accompanied Patient To Recovery: No Disposition: Recovery Room
[2024-06-24] MEDS: ceFAZolin 330 MG/ML 1 GM VIAL ONE (14:33)
[2024-06-24] MEDS: GELATIN SPONGE SZ 100 ONE (14:33)
[2024-06-24] MEDS: THROMBIN FOR SOLN 20000 UNIT KIT ONE (14:34)
[2024-06-24] MEDS: BUPIVACAINE/EPINEPHRINE 0.5% MPF 1:200,000 30 ML VIAL ONE (14:36)
--- NOTE | 2024-06-24 14:58 | Operative Report ---
Post Operative Report Pre & Post Diagnosis Operation Date: 06/24/24 13:00 Pre-Op Diagnosis: Stenosis of right internal carotid artery Post-Op Diagnosis: Stenosis of right internal carotid artery I identified the patient and participated in the time-out.: Yes Procedure Operation Date: 06/24/24 13:00 Actual Procedures p Right Transcarotid Artery Revascularization, Ultrasound of the Left Common Femoral Vein(Right) - Ye Lees MD Surgeon Ye Lees MD [employer] DO Iram Estimated Blood Loss 20 Findings Consistent with Post-Op Diagnosis Severe stenosis of the R ICA, following stenting without residual flow limiting stenosis. Pt was moving all extremities on conclusion of the case. Fluids Per anesthesia Specimens No specimen Drains No drain Complications None apparent at conclusion of the case Indications Symptomatic R Carotid stenosis Description of Procedure The patient was brought to the operating room, where lines were placed and general anesthesia was accomplished by anesthesia team. A shoulder roll was placed and the neck was rotated towards the left side of the patient. The right neck and left groin were prepped and patient was draped in the usual sterile fashion. A timeout was performed identifying the correct patient by name, procedure, and location of procedure and all were in agreement. A 4cm transverse incision was made between the sternal and clavicular heads of the sternocleidomastoid muscle. The muscle heads were retracted to each side and the carotid sheath was identified. Using blunt dissection, the carotid sheath was opened and 3cm of common carotid artery (CCA) were isolated. Umbilical tape was placed around the proximal CCA under direct visualization. A 5-0 prolene U- stitch was pre-placed in the anterior wall of the CCA to facilitate hemostasis after removal of the arterial sheath at completion of the procedure. The patient was given 8000 units of IV heparin. The contralateral (left) common femoral vein was accessed under ultrasound guidance, using a micropuncture needle and a wire and sheath were placed using modified Seldinger technique. The venous return sheath was advanced into the common femoral vein over the 0.035" wire. Blood was aspirated from the flow line and the sheath was flushed with heparinized saline.The sheath was secured to the patient's skin with a 2-0 silk stitch to maintain position in the vessel. ACT was confirmed to be above 250 seconds prior to arterial access. A 4-Micronesian non- stiffened micropuncture set was used, puncturing the artery with a 21G needle through the pre-placed U-stitch while holding gentle traction on the umbilical tape to stabilize the CCA within the incision. The micropuncture wire was advanced 3-4cm into the CCA and the 21G needle removed. The micropuncture sheath was advanced 3cm into the CCA and the wire and dilator were removed. A cerebral angiogram was obtained after ensuring there were no air bubbles in the system. The J-tipped guidewire was stopped short of the external carotid artery. After micropuncture sheath removal, the transcarotid arterial sheath was advanced to the 3rd marker and the 0.035" wire and dilator were removed. Arterial sheath position was assessed under fluoroscopy. The arterial sheath was sutured to the patient at two sites. The Flow Controller was connected to the transcarotid arterial sheath, prepared by passively allowing arterial blood to backfill the line and then it was connected to the venous return sheath. The CCA was clamped proximally with a Rum hao tourniquet to ensure active flow reversal. Heparinized saline was delivered into the venous flow line to confirm adequate flow reversal. A TCAR timeout was performed, heart rate was >70bpm and systolic BP was >140mmHg. Patient had been pretreated with glycopyrrolate and atropine was available. The lesion was crossed with an 0.014" guidewire and pre-dilation balloon angioplasty was performed with a 4.5 x 25mm [employer]kRoad rapid exchange balloon to 12 atmospheres for about 10 seconds. A 9.7x40mm ENROUTE transcarotid stent was placed, sized to the right CCA. A completion angiogram was performed showing appropriate stent position with good wall apposition. Post-dilation balloon angioplasty was performed with a 5.5x25mm silk road balloon. At TCAR case completion, antegrade flow was restored by releasing the tourniquet on the CCA and closing the stopcocks to the flow lines. The total clamp time was 10 minutes. The transcarotid arterial sheath was removed and the pre-placed suture was tied. 25 of protamine were given. A repeat ACT was obtained and was 141. The venous return sheath was removed and hemostasis achieved with manual compression. The neck incision was irrigated with antibiotic solution and was hemostatic before closure. 8cc of 0.25% marcaine with epinephrine were used for local anesthesia around skin edges. The platysma was approximated with 3-0 Vicryl running suture and the skin was closed with 4-0 running Vicryl suture and covered with Dermabond. The patient tolerated the procedure well and was extubated in the operating room. He was moving all four extremities to command prior to transfer to the recovery room. All counts were correct at the end of the procedure. Fluoroscopy time was 2.9 minutes, radiation dose was 35mGy and 15cc of contrast were used. Dr. Lees was present and participated in all critical parts of the procedure. I attest to the content of the Intraoperative Record and any orders documented therein. Any exceptions are noted below.
--- NOTE | 2024-06-24 15:27 | Anesthesiology Progress Note ---
Date of Service June 24, 2024 Anesthesia Post Procedure Vital Signs Vital Signs: Temp Pulse Pulse Resp BP BP BP 06/24/24 15:25 97.3 F L 64 13 112/53 L 110/56 L 06/24/24 15:15 65 13 103/58 L 114/65 06/24/24 15:05 97.3 F L 82 15 116/71 117/55 L 06/24/24 12:21 98.1 F 70 18 155/91 H 06/24/24 11:10 97.9 F 81 18 158/77 H 06/24/24 07:40 98.2 F 75 18 141/73 H 06/24/24 07:10 84 06/24/24 02:51 98.4 F 66 17 147/90 H 06/23/24 23:29 98.4 F 86 18 143/79 H 06/23/24 22:52 69 06/23/24 20:28 97.7 F 73 18 129/65 Pulse Ox O2 Del Method 06/24/24 15:25 96 Room Air 06/24/24 15:15 96 Room Air 06/24/24 15:05 94 Room Air 06/24/24 12:21 98 Room Air 06/24/24 11:10 97 Room Air 06/24/24 07:40 96 Room Air 06/24/24 07:10 06/24/24 02:51 95 Room Air 06/23/24 23:29 98 Room Air 06/23/24 22:52 06/23/24 20:28 97 Room Air Transfer of Care Handoff Completed per policy Notes Mental Status: alert / awake / arousable and participated in evaluation Patient Amnestic to Procedure: Yes Nausea / Vomiting: adequately controlled Pain: adequately controlled Airway Patency, RR, SpO2: stable & adequate BP & HR: stable & adequate Hydration State: stable & adequate Anesthetic Complications: no major complications apparent and Pt Satisfied with anesthetic care
[2024-06-24] MEDS ORDERED: oxyCODONE/ACETAMINOPHEN 5mg/325mg TAB PO PRN (15:58)
[2024-06-24] MEDS ORDERED: STAT IV Infusion **Titration per Protocol STA ×2 (15:58→18:07)
[2024-06-24] MEDS: PHENYLEPHRINE HCL 25 MG/250 ML NSS IV ONE (16:15)
[2024-06-24] MEDS: PHENYLEPHRINE/NSS 25 MG/250 ML BAG IV PRN (16:15)
--- NOTE | 2024-06-24 16:26 | Critical Care Consultation ---
Date of Consultation June 24, 2024 Assessment & Plan (1) Stenosis of right internal carotid artery: (2) TIA (transient ischemic attack): (3) Bradycardia: Plan Impression: 74-year-old male admitted with strokelike symptoms found to have symptomatic carotid stenosis status post TCAR today. In the ICU he is mildly hypotensive and bradycardic. Recommendations: 1. Status post TCAR: Management per vascular surgery. Defer antiplatelet and anticoagulation to them. 2. Bradycardia: Mildly hypotensive currently on Georgi-Synephrine. Will see how he does. If he remains bradycardic, transition to dopamine might be appropriate. Will place on midodrine to see if this resolves his bradycardia and hypotension. Try and wean Georgi-Synephrine to off if possible. 3. Will require PT and OT evaluations. Out of bed to chair as tolerated. 4. Continue aggressive statin therapy. 5. Await postoperative labs. Will observe in the ICU overnight tonight. If he does well likely can return to the floor tomorrow. Thanks for the opportunity participating the care of this patient. Feel free to contact us with questions or concerns. History of Present Illness Attending Physician: Long Fong, History of Present Illness Asked by vascular surgery to assist in evaluation management of this patient admitted with strokelike symptoms status post TCAR today. History is obtained from discussion with the patient as well as review the electronic medical record. Patient is a 74-year-old male who was admitted to the facility 06/21/2024 with strokelike symptoms. His initial imaging was interpreted as unremarkable. Neurology consultation was obtained and on their independent review of the images, suggested a high-grade carotid stenosis. Patient suffered additional TIA-like symptoms and vascular surgery was consulted. He was taken to the OR today for TCAR on the right. He is brought back to the ICU. He did require a small amount of Georgi-Synephrine to maintain systolic blood pressures greater than 100. He has been mildly bradycardic. He was seen by cardiology for a junctional bradycardia which was felt to be vagal. They felt no indication for intervention currently. Allergies Allergy/AdvReac Type Severity Reaction Status Date / Time No Known Allergies Allergy Unverified 06/21/24 19:18 Home Medications Medication Instructions Recorded Confirmed Type ascorbic acid (vitamin C) 1,000 mg 1 g PO DAILY 06/21/24 06/21/24 History tablet (Vitamin C) cholecalciferol (vitamin D3) 25 25 mcg PO DAILY 06/21/24 06/21/24 History mcg (1,000 unit) tablet (Vitamin D3) cyanocobalamin (vitamin B-12) 1,000 mcg PO DAILY 06/21/24 06/21/24 History 1,000 mcg tablet (Vitamin B-12) potassium gluconate 595 mg (99 mg) 595 mg PO DAILY 06/21/24 06/21/24 History tablet Patient History Medical History Vitamin D deficiency B12 deficiency Social History Smoking Status: Former smoker Tobacco Type: Cigarettes Smoking End Date: 1983; Do You Dip or Chew Tobacco: No; Hx Alcohol Use: No Hx Substance Use: No Preferred Language: [place] Communication Ability: Effective Customs Inspector Required: No Beliefs That Will Affect Care: None Current Living Situation: Spouse Feels Safe at Home: Yes Safety Concerns: Feels Safe At This Time Assistive Devices: None Review of Systems Review of Systems: Please refer to hospitalist note. No additions or deletions Physical Exam Constitutional: WD/WN, vitals as above Neck: trachea midline, no thyromegaly Respiratory: normal respiratory effort, lungs clear to auscultation Cardiovascular: RRR, no murmur, no edema Gastrointestinal (Abdomen): normal bowel sounds, soft, nontender, no hepatosplenomegaly Musculoskeletal: Extremities: extremities normal to inspection Skin: no rashes, warm and dry Neurologic: Nonfocal exam Lymphatic: no cervical lymphadenopathy Results & Data Results & Data Vital Signs (Past 12 Hours) Vital Signs Temp Pulse Pulse Resp BP BP BP 06/24/24 15:35 57 L 12 110/53 L 103/48 L 06/24/24 15:25 36.3 C L 64 13 112/53 L 110/56 L 06/24/24 15:15 65 13 103/58 L 114/65 06/24/24 15:05 36.3 C L 82 15 116/71 117/55 L 06/24/24 12:21 36.7 C 70 18 155/91 H 06/24/24 11:10 36.6 C 81 18 158/77 H 06/24/24 07:40 36.8 C 75 18 141/73 H 06/24/24 07:10 84 Pulse Ox O2 Del Method 06/24/24 15:35 95 Room Air 06/24/24 15:25 96 Room Air 06/24/24 15:15 96 Room Air 06/24/24 15:05 94 Room Air 06/24/24 12:21 98 Room Air 06/24/24 11:10 97 Room Air 06/24/24 07:40 96 Room Air 06/24/24 07:10 Critical Care Results & Data Vital Signs (Past 12 Hours) Vital Signs Temp Pulse Pulse Resp BP BP BP 06/24/24 15:35 57 L 12 110/53 L 103/48 L 06/24/24 15:25 36.3 C L 64 13 112/53 L 110/56 L 06/24/24 15:15 65 13 103/58 L 114/65 06/24/24 15:05 36.3 C L 82 15 116/71 117/55 L 06/24/24 12:21 36.7 C 70 18 155/91 H 06/24/24 11:10 36.6 C 81 18 158/77 H 06/24/24 07:40 36.8 C 75 18 141/73 H 06/24/24 07:10 84 Pulse Ox O2 Del Method 06/24/24 15:35 95 Room Air 06/24/24 15:25 96 Room Air 06/24/24 15:15 96 Room Air 06/24/24 15:05 94 Room Air 06/24/24 12:21 98 Room Air 06/24/24 11:10 97 Room Air 06/24/24 07:40 96 Room Air 06/24/24 07:10 Lab & Micro Results (Past 24 Hours) No Data to Display Na 140 mmol/L (136-145) 06/24/24 K 3.9 mmol/L (3.5-5.1) 06/24/24 Cl 111 mmol/L (98-107) H 06/24/24 CO2 23 mmol/L (21-32) 06/24/24 Anion Gap 6 (3-11) 06/24/24 BUN 12 mg/dl (6-23) 06/24/24 Creatinine 0.81 mg/dl (0.6-1.4) 06/24/24 BUN/Creatinine Ratio 14.8 (10-20) 06/24/24 Glu 97 mg/dl (70-99(Fasting)) 06/24/24 Ca 7.8 mg/dl (8.6-10.3) L 06/24/24 Calcium Level 7.8 mg/dl (8.6-10.3) L 06/24/24 05:50 I & O Totals 24 Hours 06/23/24 06/24/24 06/25/24 06:59 06:59 06:59 Intake Total 980 / 980 3450.616 / 3450.616 Output Total 301 / 301 1650 / 1650 Balance 679 / 679 1800.616 / 1800.616 Cumulative 06/21/24 17:12 thru 06/24/24 12:34 Intake Total 4430.616 Output Total 1951 Balance 2479.616 RT Ventilator Mngmt (Last Documented) Ventilator Ordered Settings Respiratory Rate 12 06/24/24 15:35 Ventilator - PT Measurements Respiratory Rate 12 Coding Level of Care Code 51870 IN/OBS CONSULT LVL 3,45M Diagnoses Stenosis of right internal carotid artery I65.21 TIA (transient ischemic attack) G45.9 Bradycardia R00.1
[2024-06-24] MEDS: SODIUM CHLORIDE 0.9% 1,000 ML IV SCH (16:44)
--- NOTE | 2024-06-24 16:52 | Billing Data ---
Date of Service June 24, 2024 Coding Level of Care Code 44434 SUB INP/OBS CARE
[2024-06-24] MEDS: MIDODRINE HCL 2.5 MG TAB PO SCH (17:20)
[2024-06-24] MEDS: DOPamine / D5W 400 MG/250 ML BAG IV SCH (18:15)
[2024-06-24] MEDS: LACTATED RINGER'S 1,000 ML IV SCH (19:34)
[2024-06-24] MEDS: COUGH DROP (SUGAR FREE) LOZ 24 LOZ/1 BOX BUCCAL PRN (20:07)
[2024-06-24] MEDS: ceFAZolin 2000MG 2,000 MG/15 ML SYR IV SCH (20:08)
[2024-06-25 04:18] LABS: Basophils # (auto) 0.01 K/uL (0.00-0.20); Basophils % (auto) 0.1 %; Hematocrit (blood only) 40.6 % (42.0-52.0); Immature Granulocytes # (auto) 0.04 K/uL (0.01-0.20); Immature Granulocytes % (auto) 0.3 %; Lymphocytes # (auto) 0.53 K/uL (1.20-3.40); Mean Corpuscular Hemoglobin 30.2 pg (25.0-34.0); Mean Corpuscular Hgb Conc 34.5 g/dL (32.0-36.0); Mean Corpuscular Volume 87.7 fL (80.0-100.0); Neutrophils # (auto) 11.86 K/uL (1.40-6.50); Neutrophils % (auto) 89.6 %; Platelet Count 221 K/uL (130-400); RDW Coefficient of Variation 13.3 % (11.5-14.5); RDW Standard Deviation 42.6 fL (36.4-46.3); Red Blood Count 4.63 M/uL (4.70-6.10); White Blood Count 13.24 K/ul (4.8-10.8)
[2024-06-25 04:36] LABS: BUN Creatinine Ratio 21.9 (10-20); Calcium 8.3 mg/dl (8.6-10.3); Creatinine Clr Calc Pharmacy 67.6 ml/min; Phosphorus 4.1 mg/dl (2.5-4.9); Potassium 4.2 mmol/L (3.5-5.1)
--- NOTE | 2024-06-25 10:03 | Hospitalist Progress Note ---
Date of Service June 25, 2024 Assessment & Plan (1) Ischemic cerebrovascular accident (CVA): (2) Stenosis of right internal carotid artery: Plan Stenosis of R ICA // s/p TCAR CTA Neck: > 90% R ICA and vertebral artery stenosis POD #1 after (R) TCAR; no bleeding or signs of infection from surgical site; vascular surgery following Persistent bradycardia after procedure as detailed below. Symptomatic bradycardia - Previous episode a few days ago was likely vagal; not recurred since then until after procedure - HR in the 40s overnight and possibly mildly symptomatic - Possibly related to recent procedure and impact over carotid sinus versus other - Continue to monitor telemetry; continue Dopamine (R) CVA Condition improving - Continue DAPT w/ ASA and Brillinta, as well as high intensity Atorvastatin 80 mg - PT recc acute rehab; CM following and patient considering whether he will go to rehab or would prefer home health Admission and Anticipated Discharge Date Admission Date: June 23, 2024 Supervising Physician Co-Signing Physician Notes I personally examined the patient and verified all rios points of history and exam, discussed case, and agree with decision making with Dr Nicholson Generally feels okay. Was very lightheaded whenever he got out of bed. Has had a little bit of blurring of visionboth eyes not focal intermittent. Vitals noted, in general he is awake and alert pleasant no distress. HEENT normocephalic atraumatic mucous membranes moist. Breathing unlabored no accessory muscle use good effort. Skin without rashes pallor or icterus. Symptomatic bradycardia now most likely related to carotid surgery and carotid sinusbut at the same time given that he is bradycardic requiring dopamine and seems to slow down whenever we stop it, and had the rather significant vagal episode the other night, continue dopamine/supportive care and await further cardiology input. Strokeright-sided stroke due to right sided carotid stenosismed management/secondary risk reduction and now status post TCAR. PT/OT eval and t reat. Probably rehab, if he does exceptionally well, possibly home with outpatient therapy. Doing well in this regard Otherwise as above Subjective Evaluated at bedside in ICU. No new concerns. States he was having some blurry vision overnight when his HR was low, but no dizziness, chest pain, or other symptoms. Still on Dopamine for HR control which nursing has not been able to wean due to persistent bradycardia Review of Systems Review of Systems: See HPI Physical Exam Constitutional: Well-appearing, in no acute distress Eyes: PERRL, EOMI. Peripheral marrufo intact ENMT: Oral mucosa pink, moist, vertical wound on right base of neck consistent with recent vascular intervention, no bleeding or discharge Results & Data Results & Data Vital Signs (Past 12 Hours) Vital Signs Temp Pulse Resp BP Pulse Ox O2 Del Method 06/25/24 08:51 50 L 21 96 06/25/24 08:30 46 L 16 94 06/25/24 08:30 134/56 L 06/25/24 08:30 134/56 L 06/25/24 08:30 134/56 L 06/25/24 08:27 45 L 19 92 06/25/24 08:18 45 L 18 95 06/25/24 08:16 36.4 C L 06/25/24 08:15 108/52 L 06/25/24 08:15 108/52 L 06/25/24 08:02 90 23 95 06/25/24 07:20 47 L 18 93 06/25/24 07:14 48 L 16 94 06/25/24 07:00 116/56 L 06/25/24 06:59 56 L 18 96 06/25/24 06:52 47 L 06/25/24 06:35 50 L 135/58 L 06/25/24 06:00 36.6 C 45 L 14 135/55 L 94 Room Air 06/25/24 05:00 46 L 14 135/54 L 94 Nasal Cannula 06/25/24 04:00 50 L 15 127/52 L 94 Room Air 06/25/24 03:35 45 L 19 130/49 L 95 Room Air 06/25/24 02:37 47 L 112/44 L 06/25/24 02:00 36.6 C 47 L 17 120/45 L 93 Room Air 06/25/24 01:40 45 L 113/45 L 06/25/24 01:00 47 L 16 115/48 L 94 Room Air 06/25/24 00:30 53 L 120/51 L 06/25/24 00:00 51 L 06/25/24 00:00 36.6 C 54 L 19 123/51 L 93 Room Air 06/24/24 23:21 47 L 16 94 06/24/24 23:12 46 L 15 94 06/24/24 23:00 109/52 L 06/24/24 22:51 47 L 14 94 06/24/24 22:45 46 L 15 97 06/24/24 22:30 48 L 14 93 06/24/24 22:30 91/46 L 06/24/24 22:15 47 L 14 94 06/24/24 22:06 46 L 17 93 Resident Activity Tracking Resident Involvement: Resident Care Provided Care Provided: Adult Hospital Medicine
--- NOTE | 2024-06-25 11:01 | Critical Care Progress Note ---
Date of Service June 25, 2024 Assessment & Plan (1) Stenosis of right internal carotid artery: (2) TIA (transient ischemic attack): (3) Bradycardia: Plan Impression: 74-year-old male admitted with strokelike symptoms found to have symptomatic carotid stenosis status post TCAR today. In the ICU he is mildly hypotensive and bradycardic. Recommendations: 1. Status post TCAR: Management per vascular surgery. Defer antiplatelet and anticoagulation to them. 2. Bradycardia: Remains in the 40s to 50s. Still requiring dopamine at 7 mcg/kg/min. Appreciate cardiology recommendations. Largely asymptomatic. 3. Will require PT and OT evaluations. 4. Continue aggressive statin therapy. 5. Await postoperative labs. Thank you for allowing us participate in the care of this pleasant patient. Will continue to monitor in the ICU for now. Admission and Anticipated Discharge Date Admission Date: June 23, 2024 Supervising Physician Co-Signing Physician Notes Patient seen and examined. EMR reviewed. Discussed with bedside critical care nurse and on multidisciplinary rounds as well as with cardiology. Patient remains on dopamine for intermittent bradycardia. Evaluated by electrophysiology. Given the temporal relationship between the patient's procedure, they recommended continued clinical observation to see whether or not this is transient or not. Avoid any AV luz blocking agents. From a vascular surgery/TCAR standpoint patient is doing well clinically. Will continue to monitor in the ICU as long as he requires chronotropic support. Subjective Overall uneventful night. The patient remains on dopamine for heart rate control. Blood pressures have been tolerable. Offers no complaints this morning. Review of Systems Review of Systems: As per HPI Physical Exam Physical Exam: VITAL SIGNS - Vital signs and nursing notes were reviewed. GENERAL - 74-year-old male appearing his stated age who is in no acute distress. Communicates well with provider and answers questions appropriately. SKIN - Postoperative incision site to the RIGHT sided neck base clean, dry, and intact. No underlying ecchymosis or edema appreciated. HEAD - NC/AT. EYES - PERRL with EOMI bilaterally. Sclera anicteric. NOSE - Midline and without cyanosis. No epistaxis or purulent drainage noted. MOUTH/OROPHARYNX - Without perioral cyanosis. NECK - Neck with FROM. LUNGS - Chest wall symmetric without accessory muscle use, intercostals retractions, or central cyanosis. Normal vesicular breath sounds CTA B/L. No wheezes, rales, or rhonchi appreciated. CARDIAC - RRR with S1/S2. No murmur, rubs, or gallops appreciated. ABDOMEN - Abdominal contour flat without pulsations or visible masses. BS normoactive all four quadrants. No tenderness, palpable masses, hepatosplenomegaly, or ascites noted. EXTREMITIES - No clubbing or peripheral cyanosis. No pretibial edema present. +3/5 radial and dorsalis pedis pulses palpated throughout. +5/5 strength noted in UE/LE bilaterally. NEUROLOGIC - Cranial nerves II through XII grossly intact. Sensory intact to light touch throughout. PSYCH - A&Ox3 and cooperates fully with examiner. Pt is very pleasant and interacts well with examiner. Results & Data Results & Data Vital Signs (Past 12 Hours) Vital Signs Temp Pulse Resp BP Pulse Ox O2 Del Method 06/25/24 08:51 50 L 21 96 06/25/24 08:30 46 L 16 94 06/25/24 08:30 134/56 L 06/25/24 08:30 134/56 L 06/25/24 08:30 134/56 L 06/25/24 08:27 45 L 19 92 06/25/24 08:18 45 L 18 95 06/25/24 08:16 36.4 C L 06/25/24 08:15 108/52 L 06/25/24 08:15 108/52 L 06/25/24 08:02 90 23 95 06/25/24 07:20 47 L 18 93 06/25/24 07:14 48 L 16 94 06/25/24 07:00 116/56 L 06/25/24 06:59 56 L 18 96 06/25/24 06:52 47 L 06/25/24 06:35 50 L 135/58 L 06/25/24 06:00 36.6 C 45 L 14 135/55 L 94 Room Air 06/25/24 05:00 46 L 14 135/54 L 94 Nasal Cannula 06/25/24 04:00 50 L 15 127/52 L 94 Room Air 06/25/24 03:35 45 L 19 130/49 L 95 Room Air 06/25/24 02:37 47 L 112/44 L 06/25/24 02:00 36.6 C 47 L 17 120/45 L 93 Room Air 06/25/24 01:40 45 L 113/45 L 06/25/24 01:00 47 L 16 115/48 L 94 Room Air 06/25/24 00:30 53 L 120/51 L 06/25/24 00:00 51 L 06/25/24 00:00 36.6 C 54 L 19 123/51 L 93 Room Air 06/24/24 23:21 47 L 16 94 06/24/24 23:12 46 L 15 94 06/24/24 23:00 109/52 L Coding Level of Care Code 29565 SUB INP/OBS CARE 2/35MIN Diagnoses Stenosis of right internal carotid artery I65.21 TIA (transient ischemic attack) G45.9 Bradycardia R00.1
--- NOTE | 2024-06-25 13:11 | Billing Data ---
Date of Service June 25, 2024 Coding Level of Care Code 56703 SUB INP/OBS CARE
--- NOTE | 2024-06-25 13:56 | Surgery Progress Note ---
Date of Service June 25, 2024 Assessment & Plan (1) Internal carotid artery stent present: Plan: Patient pod 1 from right tcar. doing well other than low blood pressure. On dopamine at present and started on midodrine. Will keep in ICU until weaned off pressors. Admission and Anticipated Discharge Date Admission Date: June 23, 2024 Subjective Patient without complaint. Was bradycardic and hypotensive during the night. Now on dopamine drip. No swallowing complaints or focal deficits Physical Exam Constitutional: WD/WN, vitals as above Neck: trachea midline Cardiovascular: Rate/Rhythm: regular rate, regular rhythm and + bradycardic Extremities: normal capillary refill Gastrointestinal (Abdomen): Inspection/Auscultation: abdomen normal to inspection Skin: + incision (dry and clean) Neurologic: CN's II-XI intact bilaterally and moves all extremities Psychiatric: A+Ox3, euthymic affect Results & Data Vital Signs (Past 12 Hours) Vital Signs Temp Pulse Resp BP Pulse Ox O2 Del Method 06/25/24 13:30 105/46 L 06/25/24 13:30 105/46 L 06/25/24 13:18 47 L 18 94 06/25/24 13:12 53 L 24 96 06/25/24 13:00 112/56 L 06/25/24 13:00 112/56 L 06/25/24 12:54 50 L 17 95 06/25/24 12:42 48 L 27 H 95 06/25/24 12:30 52 L 24 95 06/25/24 12:30 97/58 L 06/25/24 12:30 97/58 L 06/25/24 12:21 53 L 15 95 06/25/24 12:01 88/55 L 06/25/24 12:01 88/55 L 06/25/24 12:01 88/55 L 06/25/24 12:00 55 L 18 95 06/25/24 11:57 53 L 22 94 06/25/24 11:45 49 L 14 95 06/25/24 11:33 53 L 22 96 06/25/24 11:31 100/34 L 06/25/24 11:31 100/34 L 06/25/24 11:27 53 L 22 95 06/25/24 11:18 52 L 17 96 06/25/24 11:00 46 L 14 94 06/25/24 11:00 102/51 L 06/25/24 11:00 102/51 L 06/25/24 11:00 102/51 L 06/25/24 10:51 53 L 18 95 06/25/24 10:30 106/52 L 06/25/24 10:30 47 L 14 96 06/25/24 10:00 107/57 L 06/25/24 10:00 107/57 L 06/25/24 10:00 107/57 L 06/25/24 10:00 47 L 21 96 06/25/24 09:54 48 L 17 96 06/25/24 09:42 45 L 18 96 06/25/24 09:32 102/55 L 06/25/24 09:32 102/55 L 06/25/24 09:27 57 L 17 96 06/25/24 09:24 88/55 L 06/25/24 09:24 88/55 L 06/25/24 09:21 86/43 L 06/25/24 09:21 76 22 97 06/25/24 09:20 86/48 L 06/25/24 09:09 52 L 22 97 06/25/24 09:00 113/53 L 06/25/24 09:00 113/53 L 06/25/24 09:00 51 L 21 94 06/25/24 08:51 50 L 21 96 06/25/24 08:30 46 L 16 94 06/25/24 08:30 134/56 L 06/25/24 08:30 134/56 L 06/25/24 08:30 134/56 L 06/25/24 08:27 45 L 19 92 06/25/24 08:18 45 L 18 95 06/25/24 08:16 36.4 C L 06/25/24 08:15 108/52 L 06/25/24 08:15 108/52 L 06/25/24 08:02 90 23 95 06/25/24 07:20 47 L 18 93 06/25/24 07:14 48 L 16 94 06/25/24 07:00 116/56 L 06/25/24 06:59 56 L 18 96 06/25/24 06:52 47 L 06/25/24 06:35 50 L 135/58 L 06/25/24 06:00 36.6 C 45 L 14 135/55 L 94 Room Air 06/25/24 05:00 46 L 14 135/54 L 94 Nasal Cannula 06/25/24 04:00 50 L 15 127/52 L 94 Room Air 06/25/24 03:35 45 L 19 130/49 L 95 Room Air 06/25/24 02:37 47 L 112/44 L 06/25/24 02:00 36.6 C 47 L 17 120/45 L 93 Room Air
--- NOTE | 2024-06-25 15:46 | Cardiology Progress Note ---
Date of Service June 25, 2024 Assessment & Plan (1) Junctional bradycardia: (2) Hypertension: (3) Dyslipidemia: (4) Stroke: (5) Stenosis of right internal carotid artery: Plan ASSESSMENT/PLAN: 1. Bradycardia: After his carotid surgery the patient has had bradycardia. He was also hypotensive. Currently on dopamine. I think this current condition is related to his operation. Review of his records suggest that he has always had normal heart rates leading up to his surgery. An EKG obtained immediately prior to his surgery reveals a normal sinus rhythm and a normal heart rate. No evidence of AV luz conduction disease. Generally the development of significa nt sinus node dysfunction is more insidious and takes place over a long period. He does have some occasional paroxysms of weakness and possibly dizziness, these are very longstanding in nature. I think if he had significant or more progressive sinus node disease we would have seen some symptoms leading up to his admission. The acute decline in heart rate coincides with his carotid surgery. At this point I would simply continue dopamine, weaning as tolerated. I think we simply give him some time to recover the heart rate will respond and return to normal. 2. Weakness: He has paroxysms of weakness, dizziness and fatigue. He generally respond to resting and taking some hard candy or chocolate. These are very longstanding in nature. His is concerned because she feels the episodes are becoming more frequent. He has not had any of these episodes since being admitted. An attempt to correlate these episodes with any arrhythmia would be reasonable. Outpatient monitoring could be considered on discharge. He states that the episodes happen at least weekly. Admission and Anticipated Discharge Date Admission Date: June 23, 2024 Subjective This morning patient clinically feeling well. Minimal discomfort at the operative site. He was sitting up in a chair earlier. Currently denies dizziness or lightheadedness. His was present for the interview and provided some supplemental information. It seems that over the years the patient has had some episodes of weakness that are fairly sudden in nature. He is always attributed this to a low blood sugar and generally carries some form of candy with him in order to attenuate the symptoms. He generally sits down when it happens. They have not resulted in syncope. The patient states that these episodes date back several decades. His feels that they are becoming more frequent. He otherwise maintains reasonable level of activity. While he is quite sedentary due to the need to take care of his , he is able to run errands outside of the house, shop and go up and down stairs without significant limitation. Review of Systems Review of Systems: Per HPI Physical Exam Physical Exam: Gen.: No acute distress. Alert and oriented. HEENT: Anicteric sclera. Neck: Small scar and ecchymosis at the right sternoclavicular area. No significant edema or swelling of the neck. Cardiac: Regular. Normal S1-S2. No murmurs, rubs, or gallops. Pulmonary: Clear to auscultation bilaterally without wheezes, rales, or rhonchi. Abdomen: Soft, nontender, nondistended, with normoactive bowel sounds. No bruits noted. Extremities: 2+ radial pulses bilaterally. 2+ posterior tibialis pulses bilatera lly. No edema or cyanosis. Psychiatric: Affect appears appropriate. Results & Data Vital Signs (Past 12 Hours) Vital Signs Temp Pulse Resp BP Pulse Ox O2 Del Method 06/25/24 13:30 105/46 L 06/25/24 13:30 105/46 L 06/25/24 13:18 47 L 18 94 06/25/24 13:12 53 L 24 96 06/25/24 13:00 112/56 L 06/25/24 13:00 112/56 L 06/25/24 12:54 50 L 17 95 06/25/24 12:42 48 L 27 H 95 06/25/24 12:30 52 L 24 95 06/25/24 12:30 97/58 L 06/25/24 12:30 97/58 L 06/25/24 12:21 53 L 15 95 06/25/24 12:01 88/55 L 06/25/24 12:01 88/55 L 06/25/24 12:01 88/55 L 06/25/24 12:00 55 L 18 95 06/25/24 11:57 53 L 22 94 06/25/24 11:45 49 L 14 95 06/25/24 11:33 53 L 22 96 06/25/24 11:31 100/34 L 06/25/24 11:31 100/34 L 06/25/24 11:27 53 L 22 95 06/25/24 11:18 52 L 17 96 06/25/24 11:00 46 L 14 94 06/25/24 11:00 102/51 L 06/25/24 11:00 102/51 L 06/25/24 11:00 102/51 L 06/25/24 10:51 53 L 18 95 06/25/24 10:30 106/52 L 06/25/24 10:30 47 L 14 96 06/25/24 10:00 107/57 L 06/25/24 10:00 107/57 L 06/25/24 10:00 107/57 L 06/25/24 10:00 47 L 21 96 06/25/24 09:54 48 L 17 96 06/25/24 09:42 45 L 18 96 06/25/24 09:32 102/55 L 06/25/24 09:32 102/55 L 06/25/24 09:27 57 L 17 96 06/25/24 09:24 88/55 L 06/25/24 09:24 88/55 L 06/25/24 09:21 86/43 L 06/25/24 09:21 76 22 97 06/25/24 09:20 86/48 L 06/25/24 09:09 52 L 22 97 06/25/24 09:00 113/53 L 06/25/24 09:00 113/53 L 06/25/24 09:00 51 L 21 94 06/25/24 08:51 50 L 21 96 06/25/24 08:30 46 L 16 94 06/25/24 08:30 134/56 L 06/25/24 08:30 134/56 L 06/25/24 08:30 134/56 L 06/25/24 08:27 45 L 19 92 06/25/24 08:18 45 L 18 95 06/25/24 08:16 36.4 C L 06/25/24 08:15 108/52 L 06/25/24 08:15 108/52 L 06/25/24 08:02 90 23 95 06/25/24 07:20 47 L 18 93 06/25/24 07:14 48 L 16 94 06/25/24 07:00 116/56 L 06/25/24 06:59 56 L 18 96 06/25/24 06:52 47 L 06/25/24 06:35 50 L 135/58 L 06/25/24 06:00 36.6 C 45 L 14 135/55 L 94 Room Air 06/25/24 05:00 46 L 14 135/54 L 94 Nasal Cannula 06/25/24 04:00 50 L 15 127/52 L 94 Room Air Laboratory Results Abnormal Lab Results 06/25/24 06/25/24 01:44 04:05 WBC 13.24 H RBC 4.63 L Hgb 14.0 Hct 40.6 L MCV 87.7 MCH 30.2 MCHC 34.5 RDW Std Deviation 42.6 RDW Coeff of Filippo 13.3 Plt Count 221 MPV 9.0 L Immature Gran % (Auto) 0.3 Neut % (Auto) 89.6 Lymph % (Auto) 4.0 [place] % (Auto) 6.0 Eos % (Auto) 0.0 Baso % (Auto) 0.1 Neut # (Auto) 11.86 H Lymph # (Auto) 0.53 L [place] # (Auto) 0.80 H Eos # (Auto) 0.00 Baso # (Auto) 0.01 Immature Gran # (Auto) 0.04 Sodium 138 Potassium 4.2 Chloride 107 Carbon Dioxide 22 Anion Gap 9 BUN 23 Creatinine 1.05 Est Cr Clr Drug Dosing 67.6 eGFR 73.57 BUN/Creatinine Ratio 21.9 H Glucose 161 H Calcium 8.3 L Phosphorus 4.1 Magnesium 2.0 Nasal Screen MRSA (PCR) Negative PG Care Time/CCT Total # of Minutes Spent Total Time Spent with Patient: Total time spent is greater than 50% in coordination of care (as documented) at patient's floor/unit and/or counseling patient: Coding Level of Care Code 61218 SUB INP/OBS CARE 2/35MIN Diagnoses Junctional bradycardia R00.1 Hypertension I10 Dyslipidemia E78.5 Stroke I63.9 Stenosis of right internal carotid artery I65.21
--- NOTE | 2024-06-25 21:31 | Electrocardiogram Report ---
Test Reason : Blood Pressure : */* mmHG Vent. Rate : 68 BPM Atrial Rate : 68 BPM P-R Int : 152 ms QRS Dur : 74 ms QT Int : 384 ms P-R-T Axes : 61 40 36 degrees QTcB Int : 408 ms Normal sinus rhythm Normal ECG When compared with ECG of 22-Jun-2024 04:56, No significant change was found Confirmed by Sheng Amin ([id number]) on 06/25/2024 9:30:41 PM Referred By: REFERRED SELF Confirmed By: Sheng Amin
[2024-06-26 05:03] LABS: Basophils # (auto) 0.02 K/uL (0.00-0.20); Basophils % (auto) 0.2 %; Eosinophils # (auto) 0.17 K/uL (0.00-0.50); Eosinophils % (auto) 1.8 %; Hematocrit (blood only) 36.7 % (42.0-52.0); Hemoglobin 12.7 g/dl (14.0-18.0); Immature Granulocytes # (auto) 0.04 K/uL (0.01-0.20); Immature Granulocytes % (auto) 0.4 %; Lymphocytes # (auto) 1.47 K/uL (1.20-3.40); Lymphocytes % (auto) 15.8 %; Mean Corpuscular Hemoglobin 30.8 pg (25.0-34.0); Mean Corpuscular Hgb Conc 34.6 g/dL (32.0-36.0); Mean Corpuscular Volume 88.9 fL (80.0-100.0); Mean Platelet Volume 9.9 fL (9.4-12.4); Monocytes # (auto) 0.82 K/uL (0.11-0.59); Monocytes % (auto) 8.8 %; Neutrophils # (auto) 6.78 K/uL (1.40-6.50); Platelet Count 195 K/uL (130-400); RDW Coefficient of Variation 13.2 % (11.5-14.5); RDW Standard Deviation 43.7 fL (36.4-46.3); Red Blood Count 4.13 M/uL (4.70-6.10)
[2024-06-26 05:20] LABS: BUN Creatinine Ratio 29.4 (10-20); Calcium 8.1 mg/dl (8.6-10.3); Creatinine Clr Calc Pharmacy 69.2 ml/min; Magnesium 1.9 mg/dl (1.7-2.4); Phosphorus 2.8 mg/dl (2.5-4.9); Potassium 3.9 mmol/L (3.5-5.1)
[2024-06-26] MEDS: MIDODRINE HCL 10 MG TAB PO SCH (08:28)
--- NOTE | 2024-06-26 08:32 | Critical Care Progress Note ---
Date of Service June 26, 2024 Assessment & Plan (1) Stenosis of right internal carotid artery: (2) TIA (transient ischemic attack): (3) Bradycardia: Plan Impression: 74-year-old male admitted with strokelike symptoms found to have symptomatic carotid stenosis status post TCAR. Post operative course has been complicated by bradycardia and hypotension requiring dopamine. Recommendations: 1. Status post TCAR: Management per vascular surgery. Defer antiplatelet and anticoagulation to them. 2. Bradycardia: Seen by cardiology. Monitoring at this point in time. Will increase midodrine to 10 mg 3 times a day and see if we can wean off dopamine. Additional recommendations per cardiology. Consider outpatient Holter or ZIO monitoring. Will discontinue arterial line. 3. Continue PT and OT. 4. Continue aggressive statin therapy. If the patient's pressors can be discontinued, he can likely transfer out of the ICU at which point in time critical care will sign off. Admission and Anticipated Discharge Date Admission Date: June 23, 2024 Subjective Patient seen and examined. EMR reviewed. Discussed with bedside critical care nurse and vascular surgery on multidisciplinary rounds. Patient is doing well clinically. He continues to have episodic low heart rates and is maintained on dopamine due to transient low blood pressure. He is asymptomatic. Review of Systems Review of Systems: All systems reviewed & are unremarkable except as noted in Subjective Physical Exam Constitutional: WD/WN, vitals as above Neck: trachea midline, no thyromegaly Respiratory: normal respiratory effort, lungs clear to auscultation Cardiovascular: RRR, no murmur, no edema Gastrointestinal (Abdomen): normal bowel sounds, soft, nontender, no hepatosplenomegaly Musculoskeletal: Extremities: extremities normal to inspection Skin: no rashes, warm and dry Lymphatic: no cervical lymphadenopathy Results & Data Results & Data Vital Signs (Past 12 Hours) Vital Signs Temp Pulse Resp BP Pulse Ox O2 Del Method 06/26/24 06:00 56 L 22 118/83 95 Room Air 06/26/24 05:00 36.6 C 47 L 18 129/51 L 94 Room Air 06/26/24 03:59 53 L 19 120/47 L 94 Room Air 06/26/24 03:00 36.6 C 51 L 12 120/47 L 97 Room Air 06/26/24 02:00 57 L 15 121/49 L 95 Room Air 06/26/24 01:00 50 L 13 120/50 L 94 Room Air 06/26/24 00:30 55 L 150/45 H 06/26/24 00:15 46 L 135/57 L 06/26/24 00:00 51 L 06/26/24 00:00 49 L 13 100/48 L 95 Room Air 06/25/24 23:00 50 L 15 118/47 L 95 Room Air 06/25/24 22:00 51 L 15 120/46 L 97 Room Air 06/25/24 21:00 45 L 13 114/47 L 95 Room Air Critical Care Results & Data Vital Signs (Past 12 Hours) Vital Signs Temp Pulse Resp BP Pulse Ox O2 Del Method 06/26/24 06:00 56 L 22 118/83 95 Room Air 06/26/24 05:00 36.6 C 47 L 18 129/51 L 94 Room Air 06/26/24 03:59 53 L 19 120/47 L 94 Room Air 06/26/24 03:00 36.6 C 51 L 12 120/47 L 97 Room Air 06/26/24 02:00 57 L 15 121/49 L 95 Room Air 06/26/24 01:00 50 L 13 120/50 L 94 Room Air 06/26/24 00:30 55 L 150/45 H 06/26/24 00:15 46 L 135/57 L 06/26/24 00:00 51 L 06/26/24 00:00 49 L 13 100/48 L 95 Room Air 06/25/24 23:00 50 L 15 118/47 L 95 Room Air 06/25/24 22:00 51 L 15 120/46 L 97 Room Air 06/25/24 21:00 45 L 13 114/47 L 95 Room Air Lab & Micro Results (Past 24 Hours) RBC 4.13 M/uL (4.70-6.10) L 06/26/24 WBC 9.30 K/ul (4.8-10.8) 06/26/24 Hgb 12.7 g/dl (14.0-18.0) L 06/26/24 Hct 36.7 % (42.0-52.0) L 06/26/24 MCV 88.9 fL (80.0-100.0) 06/26/24 MCH 30.8 pg (25.0-34.0) 06/26/24 MCHC 34.6 g/dL (32.0-36.0) 06/26/24 RDW Standard Deviation 43.7 fL (36.4-46.3) 06/26/24 RDW Coefficient of Variation 13.2 % (11.5-14.5) 06/26/24 Plt Count 195 K/uL (130-400) 06/26/24 MPV 9.9 fL (9.4-12.4) 06/26/24 Neutrophils (%) (Auto) 73.0 % 06/26/24 Lymphocytes (%) (Auto) 15.8 % 06/26/24 Monocytes # (Auto) 0.82 K/uL (0.11-0.59) H 06/26/24 Eosinophils # (Auto) 0.17 K/uL (0.00-0.50) 06/26/24 Immature Granulocyte % (Auto) 0.4 % 06/26/24 Neutrophils # (Auto) 6.78 K/uL (1.40-6.50) H 06/26/24 Lymphocytes # (Auto) 1.47 K/uL (1.20-3.40) 06/26/24 Monocytes # (Auto) 0.82 K/uL (0.11-0.59) H 06/26/24 Eosinophils # (Auto) 0.17 K/uL (0.00-0.50) 06/26/24 Basophils # (Auto) 0.02 K/uL (0.00-0.20) 06/26/24 Immature Granulocyte # (Auto) 0.04 K/uL (0.01-0.20) 4 Na 139 mmol/L (136-145) 06/26/24 K 3.9 mmol/L (3.5-5.1) 06/26/24 Cl 111 mmol/L (98-107) H 06/26/24 CO2 22 mmol/L (21-32) 06/26/24 Anion Gap 6 (3-11) 06/26/24 BUN 30 mg/dl (6-23) H 06/26/24 Creatinine 1.02 mg/dl (0.6-1.4) 06/26/24 BUN/Creatinine Ratio 29.4 (10-20) H 06/26/24 Glu 112 mg/dl (70-99(Fasting)) H 06/26/24 Ca 8.1 mg/dl (8.6-10.3) L 06/26/24 Phosphorus Level 2.8 mg/dl (2.5-4.9) 06/26/24 Mg 1.9 mg/dl (1.7-2.4) 06/26/24 04:01 Calcium Level 8.1 mg/dl (8.6-10.3) L 06/26/24 04:01 I & O Totals 24 Hours 06/25/24 06/26/24 06/27/24 06:59 06:59 06:59 Intake Total 562.275 / 224.472 0048.95 / 1040.95 Output Total 400 / 400 1974 Balance 162.275 / 162.275 -934.05 / -934.05 Cumulative 06/21/24 17:12 thru 06/26/24 06:00 Intake Total 6033.841 Output Total 4326 Balance 1707.841 RT Ventilator Mngmt (Last Documented) Ventilator Ordered Settings Respiratory Rate 22 06/26/24 06:00 Ventilator - PT Measurements Respiratory Rate 22 Coding Level of Care Code 34987 SUB INP/OBS CARE 2/35MIN Diagnoses Stenosis of right internal carotid artery I65.21 TIA (transient ischemic attack) G45.9 Bradycardia R00.1
--- NOTE | 2024-06-26 09:31 | Surgery Progress Note ---
Date of Service June 26, 2024 Assessment & Plan (1) Internal carotid artery stent present: Plan: Patient pod #2 from right tcar. doing well other than hypotension. Will keep in ICU until weaned off pressors. Admission and Anticipated Discharge Date Admission Date: June 23, 2024 Subjective 74yo m POD #2 after R TCAR d/t symptomatic R ICA disease, seen in f/u today. Pt states feeling well, no new complaints. Review of Systems Review of Systems: All systems reviewed & are unremarkable except as noted in HPI & below Physical Exam Constitutional: WD/WN, vitals as above cooperative and comfortable; not in distress Neck: trachea midline R neck incision C/D/I, minimal ecchymosis, edema tenderness. Cardiovascular: Vessels: posterior tibial pulses present, dorsalis pedis pulses present and radial pulses present; + abnormal peripheral pulses Extremities: normal capillary refill; no edema Musculoskeletal: no cyanosis or clubbing, extremities motor strength 5/5 Skin: no rashes, warm and dry Neurologic: moves all extremities, + focal motor deficit (mild L facial droop, LUE weakness) and awake; not confused Psychiatric: A+Ox3, euthymic affect Results & Data Vital Signs (Past 12 Hours) Vital Signs Temp Pulse Resp BP Pulse Ox O2 Del Method 06/26/24 06:00 56 L 22 118/83 95 Room Air 06/26/24 05:00 36.6 C 47 L 18 129/51 L 94 Room Air 06/26/24 03:59 53 L 19 120/47 L 94 Room Air 06/26/24 03:00 36.6 C 51 L 12 120/47 L 97 Room Air 06/26/24 02:00 57 L 15 121/49 L 95 Room Air 06/26/24 01:00 50 L 13 120/50 L 94 Room Air 06/26/24 00:30 55 L 150/45 H 06/26/24 00:15 46 L 135/57 L 06/26/24 00:00 51 L 06/26/24 00:00 49 L 13 100/48 L 95 Room Air 06/25/24 23:00 50 L 15 118/47 L 95 Room Air 06/25/24 22:00 51 L 15 120/46 L 97 Room Air
--- NOTE | 2024-06-26 10:03 | Hospitalist Progress Note ---
Date of Service June 26, 2024 Assessment & Plan (1) Ischemic cerebrovascular accident (CVA): (2) Stenosis of right internal carotid artery: Plan Symptomatic bradycardia - HR still between 40s and 50s; no recurrence of sxs - In ICU but Dopamine stopped and increase Midodrine dose - Cardiology evaluated and believe current bradycardia is likely related to recent procedure and possible impact over carotid sinus - Downgrade today; Continue to monitor Stenosis of R ICA // s/p TCAR CTA Neck: > 90% R ICA and vertebral artery stenosis POD #2 after (R) TCAR; no bleeding or signs of infection from surgical site; vascular surgery following Persistent bradycardia after procedure as detailed above. (R) CVA Condition improving - Continue DAPT w/ ASA and Brillinta, as well as high intensity Atorvastatin 80 mg - PT recc acute rehab; CM following Admission and Anticipated Discharge Date Admission Date: June 23, 2024 Supervising Physician Co-Signing Physician Notes I personally examined the patient and verified all rios points of history and exam, discussed case, and agree with decision making with Dr Nicholson Feeling better overall. Would like to go to rehab. In discussion with the [facility] liaison, he thinks there may be a bed available for him tomorrow. Vitals noted, in general he is awake and alert pleasant no distress. HEENT normocephalic atraumatic mucous membranes moist. Breathing unlabored no accessory muscle use good effort. Skin without rashes pallor or icterus. Strokeright-sided stroke due to right sided carotid stenosismed management/secondary risk reduction and now status post TCAR. PT/OT eval and treat. for rehab as soon as a bed is available Symptomatic bradycardia second episode was most likely related to carotid surgery and carotid sinusbut at the same time given that he was bradycardic requiring dopamine and seemed to slow down whenever we stopped it, and had the rather significant vagal episode the other night, fortunately, however, both to my and cardiology review it appears to be all situational Otherwise as above Subjective Feeling well overall. No repeat episodes of blurry vision, no worsening weakness or new deficits, or other new sxs. Review of Systems Review of Systems: See HPI Physical Exam Constitutional: Well-appearing, in no acute distress Eyes: PERRL, EOMI. Peripheral marrufo intact ENMT: Oral mucosa pink, moist, vertical wound on right base of neck consistent with recent vascular intervention, no bleeding or discharge Results & Data Results & Data Vital Signs (Past 12 Hours) Vital Signs Temp Pulse Resp BP Pulse Ox O2 Del Method 06/26/24 06:00 56 L 22 118/83 95 Room Air 06/26/24 05:00 36.6 C 47 L 18 129/51 L 94 Room Air 06/26/24 03:59 53 L 19 120/47 L 94 Room Air 06/26/24 03:00 36.6 C 51 L 12 120/47 L 97 Room Air 06/26/24 02:00 57 L 15 121/49 L 95 Room Air 06/26/24 01:00 50 L 13 120/50 L 94 Room Air 06/26/24 00:30 55 L 150/45 H 06/26/24 00:15 46 L 135/57 L 06/26/24 00:00 51 L 06/26/24 00:00 49 L 13 100/48 L 95 Room Air 06/25/24 23:00 50 L 15 118/47 L 95 Room Air Resident Activity Tracking Resident Involvement: Resident Care Provided Care Provided: Adult [facility]
--- NOTE | 2024-06-26 18:13 | Billing Data ---
Date of Service June 26, 2024 Coding Level of Care Code 20035 SUB INP/OBS CARE
[2024-06-27 06:25] LABS: Basophils # (auto) 0.03 K/uL (0.00-0.20); Basophils % (auto) 0.4 %; Eosinophils # (auto) 0.35 K/uL (0.00-0.50); Eosinophils % (auto) 4.3 %; Hematocrit (blood only) 37.3 % (42.0-52.0); Hemoglobin 12.6 g/dl (14.0-18.0); Immature Granulocytes # (auto) 0.04 K/uL (0.01-0.20); Immature Granulocytes % (auto) 0.5 %; Lymphocytes # (auto) 1.04 K/uL (1.20-3.40); Lymphocytes % (auto) 12.8 %; Mean Corpuscular Hemoglobin 30.4 pg (25.0-34.0); Mean Corpuscular Hgb Conc 33.8 g/dL (32.0-36.0); Mean Corpuscular Volume 90.1 fL (80.0-100.0); Mean Platelet Volume 9.9 fL (9.4-12.4); Monocytes # (auto) 0.75 K/uL (0.11-0.59); Monocytes % (auto) 9.2 %; Neutrophils # (auto) 5.91 K/uL (1.40-6.50); Neutrophils % (auto) 72.8 %; Platelet Count 196 K/uL (130-400); RDW Coefficient of Variation 13.3 % (11.5-14.5); RDW Standard Deviation 44.2 fL (36.4-46.3); Red Blood Count 4.14 M/uL (4.70-6.10); White Blood Count 8.12 K/ul (4.8-10.8)
[2024-06-27 06:41] LABS: BUN Creatinine Ratio 24.3 (10-20); Calcium 8.2 mg/dl (8.6-10.3); Potassium 4.3 mmol/L (3.5-5.1)
--- NOTE | 2024-06-27 08:34 | Hospitalist Progress Note ---
Date of Service June 27, 2024 Assessment & Plan (1) Ischemic cerebrovascular accident (CVA): (2) Stenosis of right internal carotid artery: Plan (R) CVA Condition improving - Continue DAPT w/ ASA and Brillinta, as well as high intensity Atorvastatin 80 mg - PT recc acute rehab; CM following; pending placement Symptomatic bradycardia - HR still between 40s and 50s; no recurrence of sxs - Currently on Midodrine TID - Continue to monitor Stenosis of R ICA // s/p TCAR CTA Neck: > 90% R ICA and vertebral artery stenosis s/p (R) TCAR; no bleeding or signs of infection from surgical site Admission and Anticipated Discharge Date Admission Date: June 23, 2024 Supervising Physician Co-Signing Physician Notes I personally examined the patient and verified all rios points of history and exam, discussed case, and agree with decision making with Dr Nicholson sleeping comfortably, d/w nursing no issues. d/w resident physician pt doing well - because of all of this, allowed to sleep. d/w nurse outreach case manager - unfortunately will need insurance auth not likely to happen this weekend. Vitals noted, in general he is awake and alert pleasant no distress. HEENT normocephalic atraumatic mucous membranes moist. Breathing unlabored no accessory muscle use good effort. Skin without rashes pallor or icterus. Strokeright-sided stroke due to right sided carotid stenosismed management/secondary risk reduction and now status post TCAR. PT/OT eval and treat. for rehab as soon as a bed is available/insurance auth Symptomatic bradycardia second episode was most likely related to carotid surgery and carotid sinusbut at the same time given that he was bradycardic requiring dopamine and seemed to slow down whenever we stopped it, and had the rather significant vagal episode the other night, fortunately, however, both to my and cardiology review it appears to be all situational Otherwise as above Subjective Patient sitting on the side of the bed and in NAD. States he feel well overall and only c/o sore throat which is relieved by lozenges. No fevers, chills, chest pain, SOB, changes in vision, or any other changes. Review of Systems Review of Systems: See HPI Physical Exam Constitutional: Well-appearing, in no acute distress Eyes: PERRL, EOMI. Peripheral marrufo intact ENMT: Oral mucosa pink, moist, vertical wound on right base of neck consistent with recent vascular intervention, no bleeding or discharge Results & Data Results & Data Vital Signs (Past 12 Hours) Vital Signs Temp Pulse Pulse Resp BP Pulse Ox O2 Del Method 06/27/24 07:36 36.9 C 58 L 18 108/53 L 97 Room Air 06/27/24 02:49 36.5 C 52 L 16 120/54 L 97 Room Air 06/26/24 22:24 36.7 C 55 L 18 139/63 97 Room Air 06/26/24 21:49 46 L Resident Activity Tracking Resident Involvement: Resident Care Provided Care Provided: Adult Hospital Medicine
--- NOTE | 2024-06-27 14:27 | Billing Data ---
Date of Service June 27, 2024 Coding Level of Care Code 72622 SUB INP/OBS CARE
--- NOTE | 2024-06-28 09:26 | Hospitalist Progress Note ---
Date of Service June 28, 2024 Assessment & Plan (1) Ischemic cerebrovascular accident (CVA): (2) Stenosis of right internal carotid artery: Plan (R) CVA Condition improving - Continue DAPT w/ ASA and Brillinta, as well as high intensity Atorvastatin 80 mg - PT recc acute rehab; CM following; pending placement Symptomatic bradycardia - HR in 50s-60s; no recurrence of sxs - Currently on Midodrine TID - Continue to monitor Stenosis of R ICA // s/p TCAR - CTA Neck: > 90% R ICA and vertebral artery stenosis - s/p (R) TCAR; no bleeding or signs of infection from surgical site Admission and Anticipated Discharge Date Admission Date: June 23, 2024 Supervising Physician Co-Signing Physician Notes I personally examined the patient and verified all rios points of history and exam, discussed case, and agree with decision making with Dr Nicholson No new complaints. He feels like he is making good progress. Awaiting insurance approval for rehab. Vitals noted, in general he is awake and alert pleasant no distress. HEENT normocephalic atraumatic mucous membranes moist. Breathing unlabored no accessory muscle use good effort. Skin without rashes pallor or icterus. Strokeright-sided stroke due to right sided carotid stenosismed management/secondary risk reduction and now status post TCAR. PT/OT eval and treat. stable for rehab as soon as a bed is available/insurance auth Symptomatic bradycardia second episode was most likely related to carotid surgery and carotid sinusbut at the same time given that he was bradycardic requiring dopamine and seemed to slow down whenever we stopped it, and had the rather significant vagal episode the other night, fortunately, however, both to my and cardiology review it appears to be all situational; has not recurred corroborating that it was likely all situational Otherwise as above Subjective Patient walking to bathroom with help from family member and in NAD. No new or worsening sxs. No overnight events. Review of Systems Review of Systems: See HPI Physical Exam Constitutional: Well-appearing, in no acute distress Eyes: PERRL, EOMI. Peripheral marrufo intact ENMT: Oral mucosa pink, moist, vertical wound on right base of neck consistent with recent vascular intervention, no bleeding or discharge Results & Data Results & Data Vital Signs (Past 12 Hours) Vital Signs Temp Pulse Resp BP Pulse Ox O2 Del Method 06/28/24 07:01 36.9 C 65 18 118/66 100 Room Air 06/27/24 21:47 Room Air Resident Activity Tracking Resident Involvement: Resident Care Provided Care Provided: Adult Hospital Medicine
--- NOTE | 2024-06-28 15:13 | Billing Data ---
Date of Service June 28, 2024 Coding Level of Care Code 64880 SUB INP/OBS CARE
[2024-06-28 20:10] VITALS: RESP 16
--- NOTE | 2024-06-29 11:22 | Hospitalist Progress Note ---
Date of Service June 29, 2024 Assessment & Plan (1) Ischemic cerebrovascular accident (CVA): (2) Stenosis of right internal carotid artery: Plan (R) CVA Condition improving - Continue DAPT w/ ASA and Brillinta, as well as high intensity Atorvastatin 80 mg - PT recc acute rehab; peer to peer for [facility] but ultimately rejected Will coordinate outpatient PT versus home PT; CM following Symptomatic bradycardia - HR in 50s-60s; no recurrence of sxs - Currently on Midodrine - Continue to monitor Stenosis of R ICA // s/p TCAR - CTA Neck: > 90% R ICA and vertebral artery stenosis - s/p (R) TCAR; no bleeding or signs of infection from surgical site Admission and Anticipated Discharge Date Admission Date: June 23, 2024 Subjective Laying down in bed, at bedside. Feeling well. Weakness persistent but feels optimistic about improvement. No new sxs or overnight events. Review of Systems Review of Systems: See HPI Physical Exam Constitutional: Well-appearing, in no acute distress Eyes: PERRL, EOMI. Peripheral marrufo intact ENMT: Oral mucosa pink, moist, vertical wound on right base of neck consistent with recent vascular intervention, no bleeding or discharge Results & Data Results & Data Vital Signs (Past 12 Hours) Vital Signs Temp Pulse Resp BP BP Pulse Ox O2 Del Method 06/29/24 07:12 119/63 06/29/24 07:00 36.7 C 75 16 92/57 L 99 Room Air Resident Activity Tracking Resident Involvement: Resident Care Provided Care Provided: Adult Hospital Medicine
[2024-06-29 14:30] VITALS: BP 131/61; PULSE 64; TEMP 97.9; O2SAT 97
--- NOTE | 2024-06-29 16:31 | Discharge Summary ---
Date of Service June 29, 2024 Admission HPI Per Admitting Provider The patient is a 74-year-old male with a past medical history including vitamin D deficiency, vitamin B12 deficiency who presents to the emergency department as noted above. The patient himself, has had no overt symptoms, and has no symptoms at this time. Admission Exam Per Admitting Provider The patient is awake, alert and oriented 3, well developed and well nourished, normocephalic and atraumatic, lying in bed and in no acute distress. HEENT--PERRL, EOMI, mucous membranes and oropharynx dry. Neck--supple. No JVD. No bruits. Thyroid normal, trachea midline, no adenopathy. Heart--normal S1 and S2. No murmurs, rubs or gallops. Lungs--clear bilaterally, no respiratory distress, no accessory muscle use. Abdomen--normal bowel sounds and soft. Nontender. Nondistended, no hernias or masses, no organomegaly. Extremities--no cyanosis or clubbing. No edema. There are good distal pulses b/l. Dermatologic--normal skin turgor, normal color, no abnormal lymph nodes, no rash. Neurologic--cranial nerves II through XII grossly intact. Trace facial droop on the right Rheumatologic--normal range of motion. Psychiatric--normal affect. Principal Diagnosis Ischemic CVA, (R) ICA stenosis s/p TCAR Discharge Exam Constitutional: Well-appearing, in no acute distress Eyes: PERRL, EOMI. Peripheral marrufo intact ENMT: Oral mucosa pink, moist, vertical wound on right base of neck consistent with recent vascular intervention, no bleeding or discharge Discharge Data Allergies Allergy/AdvReac Type Severity Reaction Status Date / Time No Known Allergies Allergy Unverified 06/21/24 19:18 Consultations 06/21/24 18:57 ED Decision to Admit Stat 06/21/24 21:27 Consult Neurology Routine 06/22/24 11:01 Consult Vascular Surgery Routine 06/23/24 12:41 Consult Cardiology Routine 06/24/24 15:58 Consult Reference Investigator Routine Procedures Performed Operation Date: 06/24/24 13:00 Actual Procedures p Right Transcarotid Artery Revascularization, Ultrasound of the Left Common Femoral Vein(Right) - Ye Lees MD Ordered Studies 06/21/24 17:29 CT angio head w con Stat CT angio neck with con Stat CT head/brain wo con Stat 06/21/24 21:27 MR brain wo con Routine 06/22/24 23:31 CT angio head w con Stat CT angio neck with con Stat CT head/brain wo con Stat 06/24/24 07:35 EV angio carotid cerv RT Routine US EV guide vascular access Routine Hospital Course (1) Ischemic cerebrovascular accident (CVA): (2) Stenosis of right internal carotid artery: Plan (R) CVA Condition improving - Continue DAPT w/ ASA and Brillinta, as well as high intensity Atorvastatin 80 mg - PT recc acute rehab; peer to peer for [facility] but ultimately rejected Patient to coordinate PT after discharge Symptomatic bradycardia - HR in 50s-60s; no recurrence of sxs - Currently on Midodrine Stenosis of R ICA // s/p TCAR - CTA Neck: > 90% R ICA and vertebral artery stenosis - s/p (R) TCAR; no bleeding or signs of infection from surgical site - PCP f/u Total Time Total Time Spent Total Time Spent (In Minutes): . Discharge Plan Discharge Items Patient Disposition: Home - Self-Care Reason For Visit: STROKE-LIKE SYMPTOMS Discharge Diagnosis: Ischemic Stroke Activity: Per Instructions section Non-emergency contact: Primary Care Provider Call non-emergency contact if: your symptoms worsen and your temperature is above 101 Follow-up/Referrals: Jarret Beaulieu MD [Primary Care Provider] - Kalani Nicholson MD [Resident] - Diet: Heart Healthy Addtl Attending Provider Instructions: You were admitted after having a stroke that resulted in weakness in one side of your body. We started 3 new medications which are ones used to try and prevent new strokes by addressing the possible risk factors that can lead to one developing. These medications include Atorvastatin 80 mg and Aspirin 81 mg, both of which you should take daily, as well as Brilinta 90 mg, which you should take twice daily. We strongly encourage you to schedule physical therapy for continued strengthening after you are discharged. It is important to continue physical therapy, especially so soon after your stroke, to maximize your potential to return to your normal strength or as close to it as possible. A discharge summary will be sent to your primary care physician to ensure continuity of care. Please bring this discharge summary with you to your next office appointment so that your provider can review it at that time. Follow-up appointments: Keep all your follow-up appointments as already scheduled. If you cannot make an appointment, notify your provider. Medications: Your medication list has been reviewed and reconciled upon discharge to ensure accuracy and continuity of care. An updated list of all your medications is included with your hospital discharge paperwork. Please review this list closely, and make note of any changes. Take your medications as instructed; do not skip a dose of your medicines. Make sure all of your doctors know every medicine you are taking (including ewxo-dtf-ljejvan medicines, vitamins, and supplements). Call your primary care provider before taking any new medicines (including over- the-counter medicines, vitamins, and supplements), because some of these may interact with your current medications, or may make your symptoms worse. Tell your primary care provider if you cannot afford your medications. CONTACT YOUR PRIMARY CARE PROVIDER if you experience any of the following: Worsening of symptoms Fever, chills, or fatigue Difficulty following your treatment plan, or difficulty taking medications CALL 911 OR GO TO THE EMERGENCY DEPARTMENT if you experience any of the following: Sudden, severe abdominal pain or nausea/vomiting Severe chest pain, or chest pain that radiates (moves) to your jaw or arm Sudden, severe shortness of breath or difficulty breathing Thank you for allowing us to participate in your care. Pending Studies at Discharge: No Stand-Alone Forms: My [facility], Smoking Cessation, Medications to Prevent Stroke Medications and DC Order Prescriptions: New atorvastatin 40 mg Tablet 80 mg PO QAM Qty: 20 0RF aspirin 81 mg Tablet,Delayed Release (Dr/Ec) 81 mg PO QAM Qty: 20 0RF Brilinta 90 mg Tablet 90 mg PO BID Qty: 30 0RF midodrine 10 mg Tablet 10 mg PO .BID@0800, 1700 14 Days Qty: 28 0RF Continued ascorbic acid (vitamin C) [Vitamin C] 1,000 mg Tablet 1 g PO DAILY cyanocobalamin (vitamin B-12) [Vitamin B-12] 1,000 mcg Tablet 1,000 mcg PO DAILY cholecalciferol (vitamin D3) [Vitamin D3] 25 mcg (1,000 unit) Tablet 25 mcg PO DAILY potassium gluconate 595 mg (99 mg) Tablet 595 mg PO DAILY Discharge Orders: Discharge Order (Routine); Ordered 06/29/24 Ordered By: Kalani Zamudio/Other Patient Handouts: Risk Factors for Stroke Admission Data Admit Date/Time: 06/23/24 09:58 Attending Provider: Jarret Beaulieu Admit Provider: Harinder Oliveros Primary Care Provider: Jarret Beaulieu Other Providers: Harinder Oliveros; John Eddy; Ye Lees; Sheng Amin; Swapnil Wharton; Levi Oneil; Morgan Sweeney; Gino Morales; Martin Ramos; Puma Burris; Leonel Murray; Sonia Alvarado; Julisa Rose; Raúl Norris; John Burger; Loan Gallegos; [facility] Other Interventions: Discharge Summary Assessment (RN) Last Done: 06/29/24 16:53 Supervising Physician Co-Signing Physician Notes Attending attestation Pt seen and examined in concert with Dr. Bharat Liao. In agreement with the documented findings as noted in the resident documentation with any exceptions or additions as noted here. Reports doing well with PT and seeing improvement in post-CVA weakness. Feeling like he could do well at home and, after ongoing conversation, declines intpatient PT rehab services in favor of close outpatient follow up and outpatient PT. On examination, S1/S2 nl RRR no MCG. CTAB. Abd NT/ND BS+ve. CNII-XII grossly intact with right facial droop, trace CVA, right, with weakness and facial droop - counseling re: concerns for weakness and safety at home, patient and spouse decline rehab services in favor of outpt PT. Continue ASA, Brillinta, atorvastatin Else see resident documentation as noted. Total attending physician time spent with this patient's care on the day of discharge: 35 minutes. Resident Activity Tracking Resident Involvement: Resident Care Provided Care Provided: Adult Hospital Medicine
== END 2024-06-29 18:32 | disposition home or self-care (01) | DRG 35 ==
LOC: ED 17:23 → 2E 17:23 → SUATTDRO 20:29 → 2E 21:06 → 1E 06-23 00:28 → 2E 06-23 00:36 → SUATTDRO 06-23 09:58 → 1E 06-24 16:02 → 2E 06-26 18:33 → 3W 06-27 14:47 → UNDODISIN 06-29 17:23
PROC: EV.TCAR (2024-06-24 13:00)